=== PATIENT | female | born 1955 ===

== ENCOUNTER 2017-01-03 21:37 | Inpatient (IN) | payer OTHER ==
[2017-01-03 21:39] VITALS: BMI 22.6
--- NOTE | 2017-01-03 22:58 | ED PDOC ---
HPI: Chest Pain Time Seen by Provider: 01/03/17 22:33 Chief Complaint (Nursing): Chest Pain Chief Complaint (Provider): chest pain History Per: Patient History/Exam Limitations: no limitations Onset/Duration Of Symptoms: Hrs (12h), Sudden Onset Current Symptoms Are (Timing): Still Present Additional Complaint(s): midline chest pain radiating to LET chest arm and jaw since 12pm worsening since onset constant. No radiation to back. No shortness of breath. No cough. No swelling. Started at rest. No exacerbating or relieving actions. Past Medical History Reviewed: Historical Data, Nursing Documentation, Vital Signs Vital Signs: Last Vital Signs Temp 98.5 F 01/05/17 12:00 Pulse 60 01/05/17 12:00 Resp 18 01/05/17 12:00 BP 100/53 L 01/05/17 12:00 Pulse Ox 98 01/07/17 15:13 - Medical History PMH: Asthma, Gastritis, HTN, Hypercholesterolemia, Migraine, TIA Denies: HIV, Chronic Kidney Disease - Surgical History Surgical History: Cholecystectomy - Family History Family History: States: Unknown Family Hx - Living Arrangements Living Arrangements: With Family - Social History Current smoker - smoking cessation education provided: No Alcohol: None Drugs: Denies - Immunization History Hx Tetanus Toxoid Vaccination: Yes Hx Influenza Vaccination: Yes Hx Pneumococcal Vaccination: Yes - Home Medications Home Medications: Ambulatory Orders Medication Instructions Recorded Albuterol HFA [Ventolin HFA 90 2 puff IH Q4H PRN #0 inhaler 01/05/17 mcg/actuation (8 g)] Atorvastatin [Lipitor] 10 mg PO DAILY tab 01/05/17 Bisoprolol [Zebeta] 5 mg PO DAILY tab 01/05/17 Losartan [Cozaar] 100 mg PO DAILY tab 01/05/17 Montelukast [Singulair] 10 mg PO DAILY tab 01/05/17 amLODIPine [Norvasc] 5 mg PO DAILY tab 01/05/17 - Allergies Allergies/Adverse Reactions: Allergies Allergy/AdvReac Type Severity Reaction Status Date / Time No Known Allergies Allergy Verified 01/03/17 21:57 Review of Systems ROS Statement: Except As Marked, All Systems Reviewed And Found Negative (and as per HPI) Constitutional: Negative for: Fever, Chills Cardiovascular: Positive for: Chest Pain, Light Headedness. Negative for: Palpitations, Edema Respiratory: Negative for: Cough, Shortness of Breath, Pleuritic Pain Physical Exam - Reviewed Nursing Documentation Reviewed: Yes Vital Signs Reviewed: Yes - Physical Exam Appears: Positive for: Non-toxic, In Acute Distress Head Exam: Positive for: ATRAUMATIC, NORMOCEPHALIC Skin: Positive for: Warm, Dry Eye Exam: Positive for: EOMI, PERRL ENT: Negative for: Pharyngeal Erythema, Tonsillar Exudate Neck: Positive for: Painless ROM, Supple Cardiovascular/Chest: Positive for: Regular Rate, Rhythm, Chest Non Tender. Negative for: Murmur Respiratory: Positive for: Normal Breath Sounds. Negative for: Wheezing, Respiratory Distress Gastrointestinal/Abdominal: Positive for: Soft. Negative for: Tenderness, Mass , Distended, Guarding Back: Positive for: Normal Inspection. Negative for: L CVA Tenderness, R CVA Tenderness Extremity: Positive for: Normal ROM. Negative for: Pedal Edema Lymphatic: Negative for: Adenopathy Neurologic/Psych: Positive for: Alert, Mood/Affect (anxious affect). Negative for: Motor/Sensory Deficits - Laboratory Results Result Diagrams: 01/05/17 06:10 01/05/17 06:10 Interpretation Of Abn Labs: No clinically significant lab abnormalities - ECG ECG: Positive for: Interpreted By Me ECG Rhythm: Positive for: Normal ST Segment (poor baseline), Sinus Tachycardia, Nonspecific Changes (q waves inf leads similr to previous ekg 07/28) O2 Sat by Pulse Oximetry: 98 Pulse Ox Interpretation: Normal Medical Decision Making Medical Decision Making: Impression: Chest pain Chest pain w Cardiac risk factor: pt will need hospitalization for rule ACS, pending ER workup Ddx also include but no limited to chf, costochondritis, anxiety, ptx, pneumonia. DEVAN Sung Med Service for hospitalization. Disposition - Clinical Impression Clinical Impression: Chest pain - Disposition Disposition Time: 22:40 Condition: FAIR - Pt Status Changed To: Hospital Disposition Of: Observation - POA Present On Arrival: None
[2017-01-03 23:45] LABS: BASO # 0.1 K/uL (0.0-0.2); EOS # 0.7 K/uL (0.0-0.7); HEMATOCRIT 39.4 % (34.0-47.0); LYMPH # 3.3 K/uL (1.0-4.3); LYMPH % 38.8 % (20.0-40.0); MEAN CELL VOLUME 85.5 fl (81.0-99.0); MEAN CORPUSCULAR HEMOGLOBIN 28.2 pg (27.0-31.0); MEAN PLATELET VOLUME 8.5 fl (7.2-11.7); MONO # 0.7 K/uL (0.0-0.8); MONO % 7.6 % (0.0-10.0); NEUT # 3.8 K/uL (1.8-7.0); NEUT % 44.6 % (50.0-75.0); RED CELL DISTRIBUTION WIDTH 12.8 % (11.5-14.5); WHITE BLOOD COUNT 8.6 K/uL (4.8-10.8)
[2017-01-03 23:59] LABS: ALB/GLOB RATIO 1.3 (1.0-2.1); ALKALINE PHOSPHATASE 169 U/L (38-126); ALT/SGPT 37 U/L (9-52); AST/SGOT 33 U/L (14-36); BILIRUBIN,TOTAL 0.4 mg/dl (0.2-1.3); BLOOD UREA NITROGEN 17 mg/dl (7-17); CALCIUM 10.8 mg/dL (8.4-10.2); CARBON DIOXIDE 26 mmol/L (22-30); CHLORIDE 105 mmol/L (98-107); GFR AFRICAN-AMERICAN > 60; GLUCOSE,RANDOM 119 mg/dL (65-105); MAGNESIUM 2.4 MG/DL (1.6-2.3); PHOSPHOROUS 3.2 mg/dl (2.5-4.5); POTASSIUM 4.4 MMOL/L (3.6-5.0); SODIUM 144 mmol/l (132-148); TOTAL PROTEIN 7.8 G/DL (6.3-8.2)
[2017-01-04 00:28] LABS: THYROID STIMULATING HORMONE 3.67 mIU/ML (0.46-4.68)
[2017-01-04 00:34] LABS: PARTIAL THROMBOPLASTIN TIME 26.2 SECONDS (23.3-32.5)
[2017-01-04] MEDS ORDERED: Nitroglycerin 2% 1GM UD TOP STA (00:45)
[2017-01-04] MEDS ORDERED: Nitroglycerin 2% 1GM UD ONE (01:21)
--- NOTE | 2017-01-04 02:27 | ED PDOC ---
- Laboratory Results Result Diagrams: 01/03/17 23:40 01/03/17 23:40 - ECG O2 Sat by Pulse Oximetry: 98 Medical Decision Making Medical Decision Making: Patient s/o to providetr by Dr Barnes pending D Dimer D dimer WNL As per previous telecon by Dr Barnes with Dr Sung, patient will be placed on Obs status for further workup Disposition - Clinical Impression Clinical Impression: Chest pain - POA Present On Arrival: None - Disposition Disposition: Hospitalized as Observation Patient Disposition Time: 00:30 Condition: FAIR
[2017-01-04] MEDS ORDERED: Albuterol HFA 90 mcg/actuation (8 g) IH PRN (06:25)
--- NOTE | 2017-01-04 08:51 | RAD ---
HISTORY: chest pain COMPARISON: No prior. TECHNIQUE: Chest PA and lateral FINDINGS: LUNGS: No active pulmonary disease. PLEURA: No significant pleural effusion identified. No pneumothorax apparent. CARDIOVASCULAR: Normal. OSSEOUS STRUCTURES: No significant abnormalities. VISUALIZED UPPER ABDOMEN: Normal. OTHER FINDINGS: None. IMPRESSION: No active disease.
[2017-01-04] MEDS: Enoxaparin 40 mg Syringe SC SCH (09:04)
--- NOTE | 2017-01-04 10:48 | CARD ---
APPROVED REPORT EKG Measurement Heart [id number] <Conclusion> Sinus tachycardia with premature supraventricular complexes ST & T wave abnormality, consider lateral ischemia Abnormal ECG
[2017-01-04 12:28] LABS: THYROID STIMULATING HORMONE 2.56 mIU/ML (0.46-4.68)
--- NOTE | 2017-01-04 12:40 | HP ---
CHIEF COMPLAINT: Chest pain. HISTORY OF PRESENT ILLNESS: This is a 61-year-old female, known case of hypertension, elevated sourav sterol, asthma, dyspepsia, migraine, who was having chest pain radiating to left arm and chills which got worse yesterday, so the patient was brought to Emergency Room and was admitted for further manag ement. REVIEW OF SYSTEMS: Positive for chest pain. Review of system otherwise is negative for headache, di zziness, syncope, loss of consciousness, shortness of breath, nausea, vomiting, diarrhea, constipatio n, any new joint or extremity pain. Review of systems of all other organ systems is unremarkable. PAST MEDICAL HISTORY: Significant for hypertension, elevated cholesterol, ____, dyspepsia, asthma, T IA. PAST SURGICAL HISTORY: Remarkable for gallbladder surgery. PERSONAL HISTORY: The patient is currently a nonsmoker, nondrinker, no substance abuse. MEDICATIONS: The patient is on multiple medications including Fioricet, amlodipine, losartan, Advair , Ventolin, aspirin, Zebeta, Motrin, lovastatin, meloxicam and Singulair. ALLERGIES: The patient is not allergic to any medication. FAMILY HISTORY: Noncontributory. PHYSICAL EXAMINATION: GENERAL: Well-built, well-nourished overweight female in no acute distress. VITAL SIGNS: Temperature afebrile, pulse 77, respirations 16, blood pressure 140/80. HEENT: Pupils reacting to light. No JVD, no thyromegaly, no lymphadenopathy, no nystagmus. Normoce phalic, atraumatic skull. HEART: S1, S2 normal, regular. No significant murmur, gallop or rub is heard. LUNGS: Show good bilateral air exchange. No rales or rhonchi. ABDOMEN: Soft, nontender, no organomegaly, no fluid. Bowel sounds are plus. EXTREMITIES: No edema, no calf swelling, no tenderness, no acute ischemia. CENTRAL NERVOUS SYSTEM: Essentially unchanged and there is no sign of any acute gross focal motor or sensory neurological deficit. DIAGNOSTIC DATA: Available diagnostic data reviewed. WBC 8.6, hemoglobin 13, hematocrit 39.4, plate lets 290. PT 10.3, PTT 26. Sodium 144, potassium 4.4, chloride 105, bicarb 26, BUN 17, creatinine 0 .7. SMA-12 is unremarkable. Chest x-ray is clear. EKG does not reveal any acute ST-T changes, but the patient does show anterolateral ischemia changes on EKG. ADMITTING IMPRESSION: Chest pain, rule out acute coronary syndrome, coronary artery disease, hyperte nsion, elevated cholesterol, asthma, gastritis, dyspepsia. PLAN: As ordered. Telemetry monitoring does not reveal significant arrhythmias. Xander Sung MD cc: [id number] TT: 01/04/2017 12:39:14 tn
--- NOTE | 2017-01-04 12:59 | CP.PCM.CON ---
History of Present Illness - History of Present Illness History of Present Illness: patient seen examined. history of HTN presented with chest pain. Symptoms occurred at rest. The patient denied associated dyspnea. Previous echocardiogram July 2016 reveals normal left ventricular function, EF 60%. Cardiac enzymes negative x 2. Plan: will check third cardiac enzyme. If negative can d/c home, will schedule outpatient stress test. Past Patient History - Infectious Disease Hx of Infectious Diseases: None - Tetanus Immunizations Tetanus Immunization: Unknown - Past Medical History & Family History Past Medical History?: Yes - Past Social History Smoking Status: Former Smoker - CARDIAC Hx Hypercholesterolemia: Yes Hx Hypertension: Yes - PULMONARY Hx Asthma: Yes - NEUROLOGICAL Hx Migraine: Yes Hx Transient Ischemic Attacks (TIA): Yes - HEENT Hx HEENT Problems: Yes Hx Cataracts: Yes - RENAL Hx Chronic Kidney Disease: No - ENDOCRINE/METABOLIC Hx Endocrine Disorders: No - HEMATOLOGICAL/ONCOLOGICAL Hx Human Immunodeficiency Virus (HIV): No - INTEGUMENTARY Hx Dermatological Problems: No - MUSCULOSKELETAL/RHEUMATOLOGICAL Hx Musculoskeletal Disorders: No Hx Falls: No - GASTROINTESTINAL Hx Gastritis: Yes - GENITOURINARY/GYNECOLOGICAL Hx Genitourinary Disorders: No - PSYCHIATRIC Hx Psychophysiologic Disorder: No Hx Substance Use: No - SURGICAL HISTORY Hx Cholecystectomy: Yes - ANESTHESIA Hx Anesthesia: Yes Hx Anesthesia Reactions: No Meds Allergies/Adverse Reactions: Allergies Allergy/AdvReac Type Severity Reaction Status Date / Time No Known Allergies Allergy Verified 01/03/17 21:57 - Medications Medications: Current Medications Albuterol (Ventolin Hfa 90 Mcg/Actuation (8 G)) 2 puff IH Q4H PRN PRN Reason: Shortness of Breath Amlodipine Besylate (Norvasc) 5 mg PO DAILY [facility] Last Admin: 01/04/17 09:05 Dose: 5 mg Atorvastatin Calcium (Lipitor) 10 mg PO DAILY [facility] Last Admin: 01/04/17 09:05 Dose: 10 mg Bisoprolol Fumarate (Zebeta) 5 mg PO DAILY [facility] Last Admin: 01/04/17 09:05 Dose: 5 mg Enoxaparin Sodium (Lovenox) 40 mg SC DAILY [facility] PRN Reason: Protocol Last Admin: 01/04/17 09:04 Dose: 40 mg Losartan Potassium (Cozaar) 100 mg PO DAILY [facility] Last Admin: 01/04/17 09:05 Dose: 100 mg Montelukast Sodium (Singulair) 10 mg PO DAILY [facility] Last Admin: 01/04/17 09:05 Dose: 10 mg Results - Vital Signs Recent Vital Signs: Last Vital Signs Temp 97.9 F 01/04/17 12:31 Pulse 64 01/04/17 12:31 Resp 18 01/04/17 12:31 BP 115/70 01/04/17 12:31 Pulse Ox 97 01/04/17 12:31 - Labs Result Diagrams: 01/03/17 23:40 01/03/17 23:40 Labs: Laboratory Results - last 24 hr 01/04/17 11:30 Troponin I < 0.0120 Vitamin B12 306 TSH 3rd Generation 2.56
--- NOTE | 2017-01-04 12:59 | CP.PCM.CON ---
History of Present Illness - History of Present Illness History of Present Illness: I was asked to see patient by Dr. Sung. Patient is a 61 year old female with PMH HTN who presents with chest pain. The patient was at home when she felt chest pressure and assocaited dyspnea. The patient describes central chest discomfort without radiation. The patient states symptoms were progressive, and therefore she presented to [facility]. The patient has been chest pain free and without arrhythmia. Troponin x 2 has been negative thus far. Review of Systems - Constitutional Constitutional: absent: As Per HPI, Anorexia, Chills, Daytime Sleepiness, Excessive Sweating, Fatigue, Fever, Frequent Falls, Headache, Increased Appetite , Lethargy, Malaise, Night Sweats, Snoring, Sleep Apnea, Weight Gain, Weight Loss, Weakness, Other - EENT Eyes: absent: As Per HPI, Blind Spots, Blurred Vision, Change in Vision, Decreased Night Vision, Diplopia, Discharge, Dry Eye, Exophthalmos, Floaters, Irritation, Itchy Eyes, Loss of Peripheral Vision, Pain, Photophobia, Requires Corrective Lenses, Sees Flashes, Spots in Vision, Tunnel Vision, Other Visual Disturbances, Loss of Vision, Other Ears: absent: As Per HPI, Decreased Hearing, Ear Discharge, Ear Pain, Tinnitus, Abnormal Hearing, Disequilibrium, Dizziness, Other Nose/Mouth/Throat: absent: As Per HPI, Epistaxis, Nasal Congestion, Nasal Discharge, Nasal Obstruction, Nasal Trauma, Nose Pain, Post Nasal Drip, Sinus Pain, Sinus Pressure, Bleeding Gums, Change in Voice, Dental Pain, Dry Mouth, Dysphagia, Halitosis, Hoarsness, Lip Swelling, Mouth Lesions, Mouth Pain, Odynophagia, Sore Throat, Throat Swelling, Tongue Swelling, Facial Pain, Neck Pain, Neck Mass, Other - Breasts Breasts: absent: As Per HPI, Change in Shape, Mass, Pain, Nipple Discharge, Nipple Inversion, Skin Changes, Swelling, Other - Cardiovascular Cardiovascular: Chest Pain at Rest - Respiratory Respiratory: absent: As Per HPI, Cough, Dyspnea, Hemoptysis, Dyspnea on Exertion , Wheezing, Snoring, Stridor, Pain on Inspiration, Chest Congestion, Excessive Mucous Production, Change in Mucous Color, Pain with Coughing, Other - Gastrointestinal Gastrointestinal: absent: As Per HPI, Abdominal Pain, Belching, Bloating, Change in Bowel Habits, Change in Stool Character, Coffee Ground Emesis, Constipation, Cramping, Diarrhea, Dyspepsia, Dysphagia, Early Satiety, Excessive Flatus, Fecal Incontinence, Heartburn, Hematemesis, Hematochezia, Loose Stools, Melena, Nausea, Odynophagia, Temesmus, Vomiting, Other - Musculoskeletal Musculoskeletal: absent: As Per HPI, Abnormal Gait, Arthralgias, Atrophy, Back Pain, Deformity, Joint Swelling, Limited Range of Motion, Loss of Height, Muscle Cramps, Muscle Weakness, Myalgias, Neck Pain, Numbness, Radiating Pain into Limb, Stiffness, Tingling, Other - Integumentary Integumentary: absent: As Per HPI, Acne, Alopecia, Bleeding Lesions, Change in Hair, Change in Nails, Change in Pigmentation, Changing Lesions, Dry Skin, Erythema, Furuncle, Hirsutism, Lesions, New Lesions, Non-Healing Lesions, Photosensitivity, Pruritus, Rash, Skin Pain, Skin Ulcer, Sores, Striae, Swelling , Unusual Bruising, Wounds, Jaundice, Other - Neurological Neurological: absent: As Per HPI, Abnormal Gait, Abnormal Hearing, Abnormal Movements, Abnormal Speech, Behavioral Changes, Burning Sensations, Confusion, Convulsions, Disequilibrium, Dizziness, Numbness, Focal Weakness, Frequent Falls , Headaches, Lack of Coordination, Loss of Vision, Memory Loss, Paresthesias, Radicular Pain, Restless Legs, Sensory Deficit, Syncope, Tingling, Tremor, Vertigo, Weakness, Other Visual Disturbances, Other - Psychiatric Psychiatric: absent: As Per HPI, Abnormal Sleep Pattern, Anhedonia, Anxiety, Auditory Hallucinations, Behavioral Changes, Change in Appetite, Change in Libido, Confusion, Depression, Difficulty Concentrating, Hallucinations, Homicidal Ideation, Hopelessness, Irritability, Memory Loss, Mood Swings, Panic Attacks, Paranoia, Suicidal Ideation, Visual Hallucinations, Tactile Hallucinations, Other - Endocrine Endocrine: absent: As Per HPI, Change in Body Appearance, Change in Libido, Cold Intolorance, Deepening of Voice, Excessive Sweating, Fatigue, Flushing, Heat Intolorance, Increase in Ring/Shoe/Hat Size, Palpitations, Polydipsia, Polyphagia, Polyuria, Other - Hematologic/Lymphatic Hematologic: absent: As Per HPI, Easy Bleeding, Easy Bruising, Lymphadenopathy, Other Past Patient History - Infectious Disease Hx of Infectious Diseases: None - Tetanus Immunizations Tetanus Immunization: Unknown - Past Medical History & Family History Past Medical History?: Yes - Past Social History Smoking Status: Former Smoker - CARDIAC Hx Hypercholesterolemia: Yes Hx Hypertension: Yes - PULMONARY Hx Asthma: Yes - NEUROLOGICAL Hx Migraine: Yes Hx Transient Ischemic Attacks (TIA): Yes - HEENT Hx HEENT Problems: Yes Hx Cataracts: Yes - RENAL Hx Chronic Kidney Disease: No - ENDOCRINE/METABOLIC Hx Endocrine Disorders: No - HEMATOLOGICAL/ONCOLOGICAL Hx Human Immunodeficiency Virus (HIV): No - INTEGUMENTARY Hx Dermatological Problems: No - MUSCULOSKELETAL/RHEUMATOLOGICAL Hx Musculoskeletal Disorders: No Hx Falls: No - GASTROINTESTINAL Hx Gastritis: Yes - GENITOURINARY/GYNECOLOGICAL Hx Genitourinary Disorders: No - PSYCHIATRIC Hx Psychophysiologic Disorder: No Hx Substance Use: No - SURGICAL HISTORY Hx Cholecystectomy: Yes - ANESTHESIA Hx Anesthesia: Yes Hx Anesthesia Reactions: No Meds Home Medications: Home Medication List Medication Instructions Recorded Confirmed Type Albuterol HFA [Ventolin HFA 90 2 puff IH Q4H PRN #0 inhaler 01/05/17 Rx mcg/actuation (8 g)] Atorvastatin [Lipitor] 10 mg PO DAILY tab 01/05/17 Rx Bisoprolol [Zebeta] 5 mg PO DAILY tab 01/05/17 Rx Losartan [Cozaar] 100 mg PO DAILY tab 01/05/17 Rx Montelukast [Singulair] 10 mg PO DAILY tab 01/05/17 Rx amLODIPine [Norvasc] 5 mg PO DAILY tab 01/05/17 Rx Allergies/Adverse Reactions: Allergies Allergy/AdvReac Type Severity Reaction Status Date / Time No Known Allergies Allergy Verified 01/03/17 21:57 - Medications Medications: Current Medications Albuterol (Ventolin Hfa 90 Mcg/Actuation (8 G)) 2 puff IH Q4H PRN PRN Reason: Shortness of Breath Amlodipine Besylate (Norvasc) 5 mg PO DAILY [facility] Last Admin: 01/04/17 09:05 Dose: 5 mg Atorvastatin Calcium (Lipitor) 10 mg PO DAILY [facility] Last Admin: 01/04/17 09:05 Dose: 10 mg Bisoprolol Fumarate (Zebeta) 5 mg PO DAILY [facility] Last Admin: 01/04/17 09:05 Dose: 5 mg Enoxaparin Sodium (Lovenox) 40 mg SC DAILY [facility] PRN Reason: Protocol Last Admin: 01/04/17 09:04 Dose: 40 mg Losartan Potassium (Cozaar) 100 mg PO DAILY [facility] Last Admin: 01/04/17 09:05 Dose: 100 mg Montelukast Sodium (Singulair) 10 mg PO DAILY [facility] Last Admin: 01/04/17 09:05 Dose: 10 mg Physical Exam - Constitutional Appears: Non-toxic - Head Exam Head Exam: NORMAL INSPECTION - Eye Exam Eye Exam: Normal appearance - ENT Exam ENT Exam: Mucous Membranes Moist - Neck Exam Neck exam: Positive for: Full Rom - Respiratory Exam Respiratory Exam: NORMAL BREATHING PATTERN - Cardiovascular Exam Cardiovascular Exam: REGULAR RHYTHM - GI/Abdominal Exam GI & Abdominal Exam: Normal Bowel Sounds - Rectal Exam Rectal Exam: Deferred - Extremities Exam Extremities exam: Negative for: pedal edema - Back Exam Back exam: NORMAL INSPECTION - Neurological Exam Neurological exam: Alert, Oriented x3 - Psychiatric Exam Psychiatric exam: Normal Affect - Skin Skin Exam: Normal Color Results - Vital Signs Recent Vital Signs: Last Vital Signs Temp 97.9 F 01/04/17 12:31 Pulse 64 01/04/17 12:31 Resp 18 01/04/17 12:31 BP 115/70 01/04/17 12:31 Pulse Ox 97 01/04/17 12:31 - Labs Result Diagrams: 01/05/17 06:10 01/05/17 06:10 Labs: Laboratory Results - last 24 hr 01/04/17 11:30 Troponin I < 0.0120 Vitamin B12 306 TSH 3rd Generation 2.56 - EKG Data EKG Interpreted by: Myself EKG shows normal: Sinus rhythm Assessment & Plan (1) Chest pain Assessment and Plan: negative troponin x 2. currently chest pain free. If third troponin negative patient can be discharged home with outpatient stress test. Status: Acute (2) Hypertension Assessment and Plan: blood pressure control Status: Chronic Priority: Medium (3) Hypercholesteremia Assessment and Plan: risk factor for cad Status: Acute
--- NOTE | 2017-01-05 07:52 | PN ---
DATE: 01/05/2017 The patient seen and examined. Interim events noted. Consults noted, appreciated. Cardiology follo wup and intervention noted and appreciated. The patient remains in progressive care unit on telemetr y monitoring. The patient feels okay. Denies any chest pain or shortness of breath. PHYSICAL EXAMINATION: GENERAL: The patient is in no acute distress. VITAL SIGNS: Stable. HEART: S1, S2 normal, regular. LUNGS: Good bilateral air entry. ABDOMEN: Soft, nontender. EXTREMITIES: No edema, no calf swelling, no tenderness, no acute ischemia. CENTRAL NERVOUS SYSTEM: Essentially unchanged. DIAGNOSTIC DATA: Available reviewed. Telemetry monitoring does not reveal significant arrhythmias. Cardiac profile, 3 sets are negative. Overall, patient is medically stable. The patient will require stress test as outpatient. We will d ischarge patient home today. Case and plan discussed with patient. Need for a stress test and follo wup with primary care physician, . and systems development consultant, Dr. Jaimes, explained to patient in [facility], which she understood. PLAN: As ordered. Xander Sung MD cc: [id number] TT: 01/05/2017 07:51:28 Confirmation # [id number] Dictation # [id number]
[2017-01-05] MEDS: Enoxaparin 40 mg Syringe SC SCH (08:16)
[2017-01-05 08:52] LABS: HEMATOCRIT 39.3 % (34.0-47.0); MEAN CELL VOLUME 85.8 fl (81.0-99.0); MEAN CORPUSCULAR HEMOGLOBIN 28.5 pg (27.0-31.0); MEAN CORPUSCULAR HGB CONC 33.3 g/dL (33.0-37.0); RED CELL DISTRIBUTION WIDTH 12.8 % (11.5-14.5); WHITE BLOOD COUNT 10.2 K/uL (4.8-10.8)
[2017-01-05 09:03] LABS: ALB/GLOB RATIO 1.3 (1.0-2.1); ALKALINE PHOSPHATASE 144 U/L (38-126); ALT/SGPT 38 U/L (9-52); AST/SGOT 31 U/L (14-36); BILIRUBIN,TOTAL 0.8 mg/dl (0.2-1.3); BLOOD UREA NITROGEN 23 mg/dl (7-17); CALCIUM 10.2 mg/dL (8.4-10.2); CARBON DIOXIDE 23 mmol/L (22-30); CHLORIDE 105 mmol/L (98-107); CHOLESTEROL 161 mg/dL (0-199); GFR AFRICAN-AMERICAN > 60; GLUCOSE,RANDOM 98 mg/dL (65-105); POTASSIUM 4.4 MMOL/L (3.6-5.0); SODIUM 144 mmol/l (132-148); TOTAL PROTEIN 7.3 G/DL (6.3-8.2)
[2017-01-05 12:24] VITALS: BP 100/53; PULSE 60; RESP 18; TEMP 98.5
[2017-01-07 15:14] VITALS: O2SAT 98
== END 2017-01-05 14:00 | disposition home or self-care (01) | DRG 143 ==
LOC: H.ER 21:37 → H.ERHOLD 01-04 00:27 → UNDOADMOB 01-04 00:27 → H.ERHOLD 01-04 03:13 → H.TEL 01-04 03:13 → INTOOBSV 01-04 23:23 → OBSVTOIN 01-04 23:23
PROVIDERS: ADMIT Internal Medicine; ATTEND Internal Medicine
DX: R07.89 Other chest pain (principal); I10 Essential (primary) hypertension; G43.909 Migraine, unspecified, not intractable, without status migrainosus; J45.909 Unspecified asthma, uncomplicated; E78.00 Pure hypercholesterolemia, unspecified; Z87.891 Personal history of nicotine dependence; Z86.73 Personal history of transient ischemic attack (TIA), and cerebral infarction without residual deficits

== ENCOUNTER 2017-11-22 21:39 | Inpatient (IN) | payer MEDICAID, OTHER ==
[2017-11-22 21:39] VITALS: BMI 22.6
[2017-11-22] MEDS ORDERED: Iodixanol 320 MG/ML 100 ML BOTTLE IV ONE (22:27)
[2017-11-22] MEDS ORDERED: Sodium Chloride 0.9% 50 ML IV ONE (22:32)
[2017-11-22 22:41] LABS: BASO # 0.1 K/uL (0.0-0.2); BASO % 0.9 % (0.0-2.0); EOS # 0.5 K/uL (0.0-0.7); EOS % 3.4 % (0.0-4.0); HEMOGLOBIN 12.6 g/dL (12.0-16.0); LYMPH # 4.4 K/uL (1.0-4.3); LYMPH % 32.1 % (20.0-40.0); MEAN CELL VOLUME 84.4 fl (81.0-99.0); MEAN CORPUSCULAR HEMOGLOBIN 27.7 pg (27.0-31.0); MEAN CORPUSCULAR HGB CONC 32.8 g/dL (33.0-37.0); MEAN PLATELET VOLUME 8.7 fl (7.2-11.7); MONO # 1.2 K/uL (0.0-0.8); MONO % 8.7 % (0.0-10.0); NEUT # 7.5 K/uL (1.8-7.0); NEUT % 54.9 % (50.0-75.0); NRBC % 0.1 % (0.0-0.0); RBC 4.56 Mil/uL (3.80-5.20); RED CELL DISTRIBUTION WIDTH 12.7 % (11.5-14.5); WHITE BLOOD COUNT 13.7 K/uL (4.8-10.8)
[2017-11-22 22:51] LABS: ALB/GLOB RATIO 1.3 (1.0-2.1); ALBUMIN 4.6 g/dL (3.5-5.0); ALT/SGPT 50 U/L (9-52); AST/SGOT 56 U/L (14-36); BLOOD UREA NITROGEN 21 mg/dl (7-17); CALCIUM 10.2 mg/dL (8.4-10.2); GFR AFRICAN-AMERICAN 34; GFR NON-AFRICAN AMERICAN 28; HDL CHOLESTEROL 45 MG/DL (30-70)
--- NOTE | 2017-11-22 22:54 | CT ---
EXAM: CT Head Without Intravenous Contrast CLINICAL HISTORY: 62 years old, female; Signs and symptoms; Weakness, extremity; Right; Additional info: R sided weakness TECHNIQUE: Axial computed tomography images of the head/brain without intravenous contrast. All CT scans at this facility use one or more dose reduction techniques, viz.: automated exposure control; ma/kV adjustment per patient size (including targeted exams where dose is matched to indication; i.e. head); or iterative reconstruction technique. Coronal and sagittal reformatted images were created and reviewed. COMPARISON: CT - HEAD W/O CONTRAST 2015-11-06 13:48 FINDINGS: Brain: No intracranial hemorrhage. Probable 0.9 x 0.9 x 1.0 cm calcified meningioma along left frontal convexity, stable. Small parenchymal calcification. Dilated perivascular space vs chronic lacunar infarct about LEFT thalamus, stable. No definite edema. Ventricles: No hydrocephalus. Bones/joints: No acute fracture. Soft tissues: Unremarkable. Vasculature: Mild atherosclerotic disease of intracranial arteries. Sinuses: Scattered moderate mucosal thickening of ethmoid sinuses. Small fluid within maxillary, left sphenoid sinuses. Mastoid air cells: No mastoid effusion. Orbits: Unremarkable as visualized. IMPRESSION: 1. No definite territorial infarction. Acute infarction may be CT occult within first 24 hours. If focal deficit persists, consider followup CT or MRI for further evaluation. 2. Sinus disease. 3. Incidental/non-acute findings are described above.
[2017-11-22 23:03] LABS: LDL CHOLESTEROL 83 mg/dL (0-129)
--- NOTE | 2017-11-22 23:38 | ED PDOC ---
HPI: General Adult Time Seen by Provider: 11/22/17 22:14 Chief Complaint (Nursing): High Blood Pressure Chief Complaint (Provider): Weakness History Per: Patient History/Exam Limitations: no limitations Onset/Duration Of Symptoms: Days (x 1) Current Symptoms Are (Timing): Still Present Additional Complaint(s): 62 year old female with a history of CVA presents to the ED complaining of weakness in her upper and lower extremities associated with headache and dizziness, onset this morning. Daughter reports patient said she was going to pass out a few times earlier today. States she feels weak. Denies shortness of breath, chest pain, and fever. PMD: Horacio Martinez NIHSS Stroke Scale - Date/Time Evaluation Performed Date Performed: 11/22/17 Time Performed: 22:14 - How Severe is the Stroke Level of Consciousness: 0=Alert LOC to Questions: 0=Both comments correct LOC to commands: 0=Obeys both correctly Best Gaze: 0=Normal Visual: 0=No visual loss Facial: 0=Normal Motor Arm - Left: 0=No drift Motor Arm - Right: 0=No drift Motor Leg - Left: 0=No drift Motor Leg - Right: 0=No drift Limb Ataxia: 0=Absent Sensory: 0=Normal Best Language: 0=No aphasia Dysarthia: 0=Normal articulation Extinction & Inattention (Neglect): 0=Normal, no object Score: 0 Past Medical History Reviewed: Historical Data, Nursing Documentation, Vital Signs Vital Signs: Last Vital Signs Temp 97.9 F 11/23/17 04:15 Pulse 57 L 11/23/17 06:36 Resp 14 11/23/17 06:36 BP 107/44 L 11/23/17 06:36 Pulse Ox 97 11/23/17 06:36 - Medical History PMH: Asthma, Gastritis, HTN, Hypercholesterolemia, Migraine, TIA Denies: HIV, Chronic Kidney Disease Other PMH: CVA - Surgical History Surgical History: Cholecystectomy - Family History Family History: States: Unknown Family Hx - Immunization History Hx Tetanus Toxoid Vaccination: Yes Hx Influenza Vaccination: Yes Hx Pneumococcal Vaccination: Yes - Home Medications Home Medications: Ambulatory Orders Medication Instructions Recorded Albuterol HFA [Ventolin HFA 90 2 puff IH Q4H PRN #0 inhaler 01/05/17 mcg/actuation (8 g)] Atorvastatin [Lipitor] 10 mg PO DAILY tab 01/05/17 Bisoprolol [Zebeta] 5 mg PO DAILY tab 01/05/17 Losartan [Cozaar] 100 mg PO DAILY tab 01/05/17 Montelukast [Singulair] 10 mg PO DAILY tab 01/05/17 amLODIPine [Norvasc] 5 mg PO DAILY tab 01/05/17 metFORMIN [glucOPHAGE] 500 mg PO BID 11/23/17 - Allergies Allergies/Adverse Reactions: Allergies Allergy/AdvReac Type Severity Reaction Status Date / Time No Known Allergies Allergy Verified 11/22/17 22:05 Review of Systems ROS Statement: Except As Marked, All Systems Reviewed And Found Negative Constitutional: Positive for: Weakness (upper and lower extremities). Negative for: Fever Cardiovascular: Negative for: Chest Pain Respiratory: Negative for: Shortness of Breath Neurological: Positive for: Headache, Dizziness Physical Exam - Reviewed Nursing Documentation Reviewed: Yes Vital Signs Reviewed: Yes - Physical Exam Appears: Positive for: Non-toxic, No Acute Distress Head Exam: Positive for: ATRAUMATIC, NORMOCEPHALIC Skin: Positive for: Normal Color, Warm, Dry Eye Exam: Positive for: EOMI, Normal appearance, PERRL Neck: Positive for: Normal, Painless ROM, Supple Cardiovascular/Chest: Positive for: Regular Rate, Rhythm. Negative for: Murmur Respiratory: Positive for: Normal Breath Sounds. Negative for: Respiratory Distress Gastrointestinal/Abdominal: Positive for: Normal Exam, Soft. Negative for: Tenderness Back: Positive for: Normal Inspection. Negative for: L CVA Tenderness, R CVA Tenderness Extremity: Positive for: Normal ROM. Negative for: Deformity Neurologic/Psych: Positive for: Alert, Oriented. Negative for: Motor/Sensory Deficits, Cerebellar Tests, Aphasia - Laboratory Results Result Diagrams: 11/23/17 06:30 11/22/17 22:36 - ECG O2 Sat by Pulse Oximetry: 97 (RA) Pulse Ox Interpretation: Normal Medical Decision Making Medical Decision Making: Time: 22:14 Impression: CVA vs TIA Initial Plan: --Blood type and screen --Angiography head --Head Ct (Code Stroke) --EKG --CMP --Hemoglobin --Lipid panel --Troponin I --CBC --PTT --Prothrombin Time --Chest x-ray --Aspirin 362 mg PO Time: 22:[address] FINDINGS: Brain: No intracranial hemorrhage. Probable 0.9 x 0.9 x 1.0 cm calcified meningioma along left frontal convexity, stable. Small parenchymal calcification. Dilated perivascular space vs chronic lacunar infarct about LEFT thalamus, stable. No definite edema. Ventricles: No hydrocephalus. Bones/joints: No acute fracture. Soft tissues: Unremarkable. Vasculature: Mild atherosclerotic disease of intracranial arteries. Sinuses: Scattered moderate mucosal thickening of ethmoid sinuses. Small fluid within maxillary, left sphenoid sinuses. Mastoid air cells: No mastoid effusion. Orbits: Unremarkable as visualized. IMPRESSION: 1. No definite territorial infarction. Acute infarction may be CT occult within first 24 hours. If focal deficit persists, consider followup CT or MRI for further evaluation. 2. Sinus disease. 3. Incidental/non-acute findings are described above. Angiography FINDINGS: RIGHT INTERNAL CAROTID ARTERY: No evidence of occlusion. No aneurysm visualized. RIGHT ANTERIOR CEREBRAL ARTERY: No evidence of occlusion. No aneurysm visualized. RIGHT MIDDLE CEREBRAL ARTERY: No evidence of occlusion. No aneurysm visualized. RIGHT POSTERIOR CEREBRAL ARTERY: No evidence of occlusion. No aneurysm visualized. RIGHT VERTEBRAL ARTERY: Appears congenitally hypoplastic. No evidence of occlusion. LEFT INTERNAL CAROTID ARTERY: No evidence of occlusion. No aneurysm visualized. LEFT ANTERIOR CEREBRAL ARTERY: No evidence of occlusion. No aneurysm visualized. LEFT MIDDLE CEREBRAL ARTERY: No evidence of occlusion. No aneurysm visualized. LEFT POSTERIOR CEREBRAL ARTERY: No evidence of occlusion. No aneurysm visualized. LEFT VERTEBRAL ARTERY: Appears dominant. No evidence of occlusion. BASILAR ARTERY: No evidence of occlusion. No aneurysm visualized. IMPRESSION: - No evidence of occlusion or other acute abnormality of the major intracranial arteries. - See above for remaining findings Case was discussed with Dr. Baldwin as a neurology consult because of extremity weakness. Also discussed with Dr. Sung who agreed to accept the patient into his service. 0700 Dr. Sung reports that he spoke with Dr. Dia to hand over patient to hospitalist service. Scribe Attestation: Documented by Nicolle Bravo, acting as a scribe for Alfredo Ramirez MD. Provider Scribe Attestation: All medical record entries made by the Scribe were at my direction and personally dictated by me. I have reviewed the chart and agree that the record accurately reflects my personal performance of the history, physical exam, medical decision making, and the department course for this patient. I have also personally directed, reviewed, and agree with the Disposition - Clinical Impression Clinical Impression: CVA (cerebral vascular accident), Headache - Patient ED Disposition Is Patient to be Admitted: Yes - Disposition Disposition Time: 23:00 Condition: GUARDED Patient Signed Over To: Xander Sung K - Pt Status Changed To: Hospital Disposition Of: Inpatient - Admit Certification Admit to Inpatient:: After my assessment, the patient will require hospitalization for at least two midnights. This is because of the severity of symptoms shown, intensity of services needed, and/or the medical risk in this patient being treated as an outpatient.
[2017-11-22 23:55] LABS: PROTHROMBIN TIME 11.4 Seconds (9.8-13.1)
[2017-11-22 23:56] LABS: PARTIAL THROMBOPLASTIN TIME 32.1 Seconds (25.6-37.1)
--- NOTE | 2017-11-23 00:23 | CT ---
EXAM: CT Angiography Head With Intravenous Contrast EXAM DATE/TIME: 11/22/2017 10:21 PM CLINICAL HISTORY: 62 years old, female; Signs and symptoms; Weakness; Additional info: R sided weakness TECHNIQUE: Axial computed tomographic angiography images of the head with intravenous contrast using CT angiography protocol. All CT scans at this facility use one or more dose reduction techniques, viz.: automated exposure control; ma/kV adjustment per patient size (including targeted exams where dose is matched to indication; i.e. head); or iterative reconstruction technique. MIP reconstructed images were created and reviewed. Coronal and sagittal reformatted images were created and reviewed. CONTRAST: 95 mL of VISIPAQUE-320 administered intravenously. COMPARISON: Recent noncontrast head CT. FINDINGS: RIGHT INTERNAL CAROTID ARTERY: No evidence of occlusion. No aneurysm visualized. RIGHT ANTERIOR CEREBRAL ARTERY: No evidence of occlusion. No aneurysm visualized. RIGHT MIDDLE CEREBRAL ARTERY: No evidence of occlusion. No aneurysm visualized. RIGHT POSTERIOR CEREBRAL ARTERY: No evidence of occlusion. No aneurysm visualized. RIGHT VERTEBRAL ARTERY: Appears congenitally hypoplastic. No evidence of occlusion. LEFT INTERNAL CAROTID ARTERY: No evidence of occlusion. No aneurysm visualized. LEFT ANTERIOR CEREBRAL ARTERY: No evidence of occlusion. No aneurysm visualized. LEFT MIDDLE CEREBRAL ARTERY: No evidence of occlusion. No aneurysm visualized. LEFT POSTERIOR CEREBRAL ARTERY: No evidence of occlusion. No aneurysm visualized. LEFT VERTEBRAL ARTERY: Appears dominant. No evidence of occlusion. BASILAR ARTERY: No evidence of occlusion. No aneurysm visualized. IMPRESSION: - No evidence of occlusion or other acute abnormality of the major intracranial arteries. - See above for remaining findings.
[2017-11-23 06:55] LABS: HEMOGLOBIN 11.5 g/dL (12.0-16.0); MEAN CELL VOLUME 83.8 fl (81.0-99.0); MEAN CORPUSCULAR HEMOGLOBIN 27.4 pg (27.0-31.0); MEAN CORPUSCULAR HGB CONC 32.7 g/dL (33.0-37.0); RBC 4.21 Mil/uL (3.80-5.20); RED CELL DISTRIBUTION WIDTH 13.1 % (11.5-14.5); WHITE BLOOD COUNT 10.7 K/uL (4.8-10.8)
--- NOTE | 2017-11-23 08:35 | CP.PCM.HP ---
History of Present Illness - History of Present Illness History of Present Illness: Pt was initially admitted under Dr Sung and transferred to our service today. Chief Complaint : right sided weakness HPI: 62y/o lady with hx of HTN, Hyperlipidemia, previous TIA, Asthma, was brought in bec of right sided weakness. For the past 1 wk, the patint has been having a slight frontal headache , accompanied by slight dizziness. She took OTC analgesics with some relief. Yesterday morning, she woke up feeling lightheaded, her headache continued. This was followed by right arm and leg numbness then weakness later that day accompanied by slurring of speech. She was then brought in by family when she told them of her symptoms. 6 years ago , she had the same symptoms, however the weakness was on the left and this resolved immediately. She has been taking Aspirin 81mg and Lipitor since then . At present , her right sided weakness is better though not back to her baseline , slurring of speech resolved and she passed her bedside swallowing screen. PMD : Dr Martinez Present on Admission - Present on Admission Any Indicators Present on Admission: No Review of Systems - Review of Systems All systems: reviewed and no additional remarkable complaints except - Constitutional Constitutional: Headache, Weakness - EENT Eyes: absent: Blurred Vision, Change in Vision Ears: absent: Decreased Hearing Nose/Mouth/Throat: absent: Nasal Congestion - Cardiovascular Cardiovascular: absent: Chest Pain, Palpitations, Paroxysmal Nocturnal Dyspnea, Pedal Edema - Respiratory Respiratory: Cough. absent: Dyspnea, Hemoptysis, Dyspnea on Exertion - Gastrointestinal Gastrointestinal: absent: Abdominal Pain, Nausea, Vomiting - Genitourinary Genitourinary: absent: Difficulty Urinating, Dysuria - Musculoskeletal Musculoskeletal: Muscle Weakness, Numbness - Integumentary Integumentary: absent: Rash - Neurological Neurological: Dizziness, Numbness, Focal Weakness, Headaches - Psychiatric Psychiatric: absent: Anxiety, Depression, Suicidal Ideation - Endocrine Endocrine: absent: Polydipsia, Polyphagia, Polyuria - Hematologic/Lymphatic Hematologic: absent: Easy Bleeding, Easy Bruising Past Patient History - Infectious Disease Hx of Infectious Diseases: None - Tetanus Immunizations Tetanus Immunization: Unknown - Past Medical History & Family History Past Medical History?: Yes - Past Social History Smoking Status: Former Smoker Chewing Tobacco Use: No Cigar Use: No Occupation: nanny Alcohol: None Drugs: Denies Home Situation {Lives}: With Family Domestic Violence: Negative - CARDIAC Hx Hypercholesterolemia: Yes Hx Hypertension: Yes - PULMONARY Hx Asthma: Yes - NEUROLOGICAL Hx Migraine: Yes Hx Transient Ischemic Attacks (TIA): Yes - HEENT Hx HEENT Problems: Yes Hx Cataracts: Yes - RENAL Hx Chronic Kidney Disease: No - ENDOCRINE/METABOLIC Hx Endocrine Disorders: No - HEMATOLOGICAL/ONCOLOGICAL Hx Human Immunodeficiency Virus (HIV): No - INTEGUMENTARY Hx Dermatological Problems: No - MUSCULOSKELETAL/RHEUMATOLOGICAL Hx Musculoskeletal Disorders: No Hx Falls: No - GASTROINTESTINAL Hx Gastritis: Yes - GENITOURINARY/GYNECOLOGICAL Hx Genitourinary Disorders: No - PSYCHIATRIC Hx Psychophysiologic Disorder: No Hx Substance Use: No - SURGICAL HISTORY Hx Cholecystectomy: Yes - ANESTHESIA Hx Anesthesia: Yes Hx Anesthesia Reactions: No Hx Malignant Hyperthermia: No Meds Allergies/Adverse Reactions: Allergies Allergy/AdvReac Type Severity Reaction Status Date / Time No Known Allergies Allergy Verified 11/22/17 22:05 Physical Exam - Constitutional Appears: Non-toxic, No Acute Distress - Head Exam Head Exam: ATRAUMATIC, NORMAL INSPECTION, NORMOCEPHALIC - Eye Exam Eye Exam: EOMI, Normal appearance, PERRL Pupil Exam: NORMAL ACCOMODATION - ENT Exam ENT Exam: Mucous Membranes Dry, Normal External Ear Exam - Neck Exam Neck exam: Positive for: Full Rom. Negative for: Meningismus - Respiratory Exam Respiratory Exam: NORMAL BREATHING PATTERN. absent: Accessory Muscle Use, Rales , Rhonchi, Wheezes, Respiratory Distress - Cardiovascular Exam Cardiovascular Exam: REGULAR RHYTHM, +S1, +S2 - GI/Abdominal Exam GI & Abdominal Exam: Normal Bowel Sounds, Soft. absent: Tenderness - Extremities Exam Extremities exam: Positive for: normal capillary refill, pedal pulses present. Negative for: calf tenderness, pedal edema - Back Exam Back exam: FULL ROM. absent: CVA tenderness (L), CVA tenderness (R), vertebral tenderness - Neurological Exam Neurological exam: Alert, CN II-XII Intact, Oriented x3, Reflexes Normal Additional comments: MMT : 4/5 Right 5/5 Left - Psychiatric Exam Psychiatric exam: Normal Affect, Normal Mood - Skin Skin Exam: Dry, Normal Color, Warm Results - Vital Signs Recent Vital Signs: Last Vital Signs Temp 97.9 F 11/23/17 04:15 Pulse 57 L 11/23/17 06:36 Resp 14 11/23/17 06:36 BP 107/44 L 11/23/17 06:36 Pulse Ox 97 11/23/17 07:17 - Labs Result Diagrams: 11/23/17 06:30 11/22/17 22:36 Labs: Laboratory Results - last 24 hr 11/22/17 11/22/17 11/22/17 22:17 22:36 22:36 WBC 13.7 H RBC 4.56 Hgb 12.6 Hct 38.5 MCV 84.4 MCH 27.7 MCHC 32.8 L RDW 12.7 Plt Count 279 MPV 8.7 Neut % (Auto) 54.9 Lymph % (Auto) 32.1 [place] % (Auto) 8.7 Eos % (Auto) 3.4 Baso % (Auto) 0.9 Neut # (Auto) 7.5 H Lymph # (Auto) 4.4 H [place] # (Auto) 1.2 H Eos # (Auto) 0.5 Baso # (Auto) 0.1 PT INR APTT Sodium 143 Potassium 3.8 Chloride 104 Carbon Dioxide 25 Anion Gap 18 BUN 21 H Creatinine 1.8 H Est GFR ( Amer) 34 Est GFR (Non-Af Amer) 28 POC Glucose (mg/dL) 104 Random Glucose 112 H Calcium 10.2 Total Bilirubin 0.3 AST 56 H ALT 50 Alkaline Phosphatase 250 H Troponin I < 0.0120 Total Protein 8.1 Albumin 4.6 Globulin 3.5 Albumin/Globulin Ratio 1.3 Triglycerides 265 H D Cholesterol 172 LDL Cholesterol Direct 83 HDL Cholesterol 45 Vitamin B12 TSH 3rd Generation 11/22/17 11/23/17 11/23/17 22:36 06:30 06:30 WBC 10.7 RBC 4.21 Hgb 11.5 L Hct 35.3 MCV 83.8 MCH 27.4 MCHC 32.7 L RDW 13.1 Plt Count 259 MPV Neut % (Auto) Lymph % (Auto) [place] % (Auto) Eos % (Auto) Baso % (Auto) Neut # (Auto) Lymph # (Auto) [place] # (Auto) Eos # (Auto) Baso # (Auto) PT 11.4 INR 1.0 APTT 32.1 Sodium Potassium Chloride Carbon Dioxide Anion Gap BUN Creatinine Est GFR ( Amer) Est GFR (Non-Af Amer) POC Glucose (mg/dL) Random Glucose Calcium Total Bilirubin AST ALT Alkaline Phosphatase Troponin I Total Protein Albumin Globulin Albumin/Globulin Ratio Triglycerides Cholesterol LDL Cholesterol Direct HDL Cholesterol Vitamin B12 306 TSH 3rd Generation 3.45 - EKG Data EKG Interpreted by: Myself EKG shows normal: Sinus rhythm Rate: Bradycardia - EKG Data EKG comments: T wave inversion V2, V3 Assessment & Plan (1) CVA (cerebral vascular accident) Status: Acute (2) Headache Status: Acute (3) TAMARA (acute kidney injury) Status: Acute (4) Asthma Status: Chronic (5) Hypercholesteremia Status: Chronic (6) Hypertension Status: Chronic Priority: Medium (7) DVT prophylaxis Status: Acute Priority: High - Assessment and Plan (Free Text) Assessment: 62y/o lady with hx of HTN, Hyperlipidemia, previous TIA, Asthma, was brought in bec of right sided weakness. (1) CVA (cerebral vascular accident) Status: Acute admit to Tele start ASA 325 mg , add Plavix ( pt was on 81 mg ASA daily ) , start high dose Statin at 80mg daily CT of head : chronic infarct CTA of Brain : neg MRI of Brain Carotid Sono ECHO Neuro consult PT,OT, Speech consult (2) Headache Status: Acute Tylenol prn YOUSSEF better (3) TAMARA (acute kidney injury) Status: Acute rpt BMP if persistent will do renal sonogram and further work up may be just ATN/dehydration, however need to r/o HTN Nephropathy (4) Asthma, mild intermittent Status: Chronic Albuterol prn (5) Hypercholesteremia Status: Chronic start statin (6) Hypertension Status: Chronic Priority: Medium hold antihypertensives to allow permissive HTN (7) DVT prophylaxis Status: Acute Priority: High Lovenox Decision To Admit - Pt Status Changed To: Hospital Disposition Of: Inpatient - Admit Certification Admit to Inpatient:: After my assessment, the patient will require hospitalization for at least two midnights. This is because of the severity of symptoms shown, intensity of services needed, and/or the medical risk in this patient being treated as an outpatient. - . Bed Request Type: Telemetry Admitting Physician: Mahnaz Nunez
[2017-11-23] MEDS ORDERED: Enoxaparin 40 mg Syringe SC SCH (09:00)
[2017-11-23] MEDS: Enoxaparin 30 mg Syringe SC SCH (09:31)
[2017-11-23 11:40] LABS: CALCIUM 10.1 mg/dL (8.4-10.2)
--- NOTE | 2017-11-23 13:40 | RAD ---
HISTORY: code stk COMPARISON: 01/03/2017 FINDINGS: LUNGS: No active pulmonary disease. PLEURA: No significant pleural effusion identified, no pneumothorax apparent. CARDIOVASCULAR: Normal. OSSEOUS STRUCTURES: No significant abnormalities. VISUALIZED UPPER ABDOMEN: Normal. OTHER FINDINGS: None. IMPRESSION: No active disease.
--- NOTE | 2017-11-23 17:11 | US ---
PROCEDURE: Bilateral duplex Doppler carotid arterial ultrasound examination HISTORY: CVA COMPARISON: Not available Findings Right carotid artery: There is minimal intimal thickening noted in the distal common carotid artery. There is minimal scattered atheromatous plaque in the carotid bulb and distal CCA. . Peak systolic velocity measurements: CCA: 34333.2 cm/sec ICA: 106.4 cm/sec ICA/CCA peak systolic velocity ratio: 0.9 Antegrade flow demonstrated in the vertebral artery Left carotid artery: There is no significant atheromatous plaque. There is mild intimal thickening in the distal common carotid artery. Peak systolic velocity measurements: CCA: 89.6 cm/sec ICA: 73970.4 cm/sec ICA/CCA peak systolic velocity ratio: 1.3 Antegrade flow demonstrated in the vertebral artery IMPRESSION: Less than 50 percent ICA stenosis bilaterally as per SRU consensus criteria. Antegrade flow demonstrated in both vertebral arteries.
--- NOTE | 2017-11-23 20:27 | CARD ---
APPROVED REPORT EKG Measurement Heart [id number] <Conclusion> Sinus bradycardia ST & T wave abnormality, consider anterior ischemia Abnormal ECG
--- NOTE | 2017-11-23 22:03 | CP.PCM.CON ---
History of Present Illness - History of Present Illness History of Present Illness: Miss Reyes is a 62y/o lady with hx of HTN, Hyperlipidemia, previous TIA , Asthma, was brought in bec of right sided weakness, duration one week, with a frontal headache, and dizziness. Yesterday morning, she had right arm and leg numbness then weakness later that day accompanied by slurring of speech. Approximately 6 years ago, she had simiar symptoms that resolved quickly. On this visit, however, her right sided weakness persists and her dysarthria has improved. PMH/PSH: as above FH/SH: . no tobacco, no etoh All: nkda PMD : Dr Martinez on exam: significant for right sided drift. aaoz3 pupils 3mm-2mm with light .eomi. Cn 2-12 normal. Speech fluent. Can name and repeat. Right proximal strength is 4/5. all other muscle groups are 5/5 Sensory :intact ft, pin, position, sense. Gait: normal. Past Patient History - Infectious Disease Hx of Infectious Diseases: None - Tetanus Immunizations Tetanus Immunization: Unknown - Past Medical History & Family History Past Medical History?: Yes - Past Social History Smoking Status: Former Smoker Chewing Tobacco Use: No Cigar Use: No Occupation: nanny Alcohol: None Drugs: Denies Home Situation {Lives}: With Family Domestic Violence: Negative - CARDIAC Hx Hypercholesterolemia: Yes Hx Hypertension: Yes - PULMONARY Hx Asthma: Yes - NEUROLOGICAL Hx Migraine: Yes Hx Transient Ischemic Attacks (TIA): Yes - HEENT Hx HEENT Problems: Yes Hx Cataracts: Yes - RENAL Hx Chronic Kidney Disease: No - ENDOCRINE/METABOLIC Hx Endocrine Disorders: No - HEMATOLOGICAL/ONCOLOGICAL Hx Human Immunodeficiency Virus (HIV): No - INTEGUMENTARY Hx Dermatological Problems: No - MUSCULOSKELETAL/RHEUMATOLOGICAL Hx Musculoskeletal Disorders: No Hx Falls: No - GASTROINTESTINAL Hx Gastritis: Yes - GENITOURINARY/GYNECOLOGICAL Hx Genitourinary Disorders: No - PSYCHIATRIC Hx Psychophysiologic Disorder: No Hx Substance Use: No - SURGICAL HISTORY Hx Cholecystectomy: Yes - ANESTHESIA Hx Anesthesia: Yes Hx Anesthesia Reactions: No Hx Malignant Hyperthermia: No Meds Allergies/Adverse Reactions: Allergies Allergy/AdvReac Type Severity Reaction Status Date / Time No Known Allergies Allergy Verified 11/22/17 22:05 - Medications Medications: Current Medications Aspirin (Aspirin) 325 mg PO DAILY [facility] Last Admin: 11/23/17 09:31 Dose: 325 mg Atorvastatin Calcium (Lipitor) 80 mg PO DAILY [facility] Last Admin: 11/23/17 09:31 Dose: 80 mg Clopidogrel Bisulfate (Plavix) 75 mg PO DAILY [facility] Last Admin: 11/23/17 09:31 Dose: 75 mg Enoxaparin Sodium (Lovenox) 30 mg SC DAILY [facility] PRN Reason: Protocol Last Admin: 11/23/17 09:31 Dose: 30 mg Results - Vital Signs Recent Vital Signs: Last Vital Signs Temp 97.9 F 11/23/17 04:15 Pulse 57 L 11/23/17 06:36 Resp 14 11/23/17 06:36 BP 107/44 L 11/23/17 06:36 Pulse Ox 97 11/23/17 07:17 - Labs Result Diagrams: 11/23/17 06:30 11/23/17 11:10 Labs: Laboratory Results - last 24 hr 11/22/17 11/22/17 11/22/17 22:17 22:36 22:36 WBC 13.7 H RBC 4.56 Hgb 12.6 Hct 38.5 MCV 84.4 MCH 27.7 MCHC 32.8 L RDW 12.7 Plt Count 279 MPV 8.7 Neut % (Auto) 54.9 Lymph % (Auto) 32.1 [place] % (Auto) 8.7 Eos % (Auto) 3.4 Baso % (Auto) 0.9 Neut # (Auto) 7.5 H Lymph # (Auto) 4.4 H [place] # (Auto) 1.2 H Eos # (Auto) 0.5 Baso # (Auto) 0.1 PT INR APTT Sodium 143 Potassium 3.8 Chloride 104 Carbon Dioxide 25 Anion Gap 18 BUN 21 H Creatinine 1.8 H Est GFR ( Amer) 34 Est GFR (Non-Af Amer) 28 POC Glucose (mg/dL) 104 Random Glucose 112 H Calcium 10.2 Total Bilirubin 0.3 AST 56 H ALT 50 Alkaline Phosphatase 250 H Troponin I < 0.0120 Total Protein 8.1 Albumin 4.6 Globulin 3.5 Albumin/Globulin Ratio 1.3 Triglycerides 265 H D Cholesterol 172 LDL Cholesterol Direct 83 HDL Cholesterol 45 Vitamin B12 TSH 3rd Generation 11/22/17 11/23/17 11/23/17 22:36 06:30 06:30 WBC 10.7 RBC 4.21 Hgb 11.5 L Hct 35.3 MCV 83.8 MCH 27.4 MCHC 32.7 L RDW 13.1 Plt Count 259 MPV Neut % (Auto) Lymph % (Auto) [place] % (Auto) Eos % (Auto) Baso % (Auto) Neut # (Auto) Lymph # (Auto) [place] # (Auto) Eos # (Auto) Baso # (Auto) PT 11.4 INR 1.0 APTT 32.1 Sodium Potassium Chloride Carbon Dioxide Anion Gap BUN Creatinine Est GFR ( Amer) Est GFR (Non-Af Amer) POC Glucose (mg/dL) Random Glucose Calcium Total Bilirubin AST ALT Alkaline Phosphatase Troponin I Total Protein Albumin Globulin Albumin/Globulin Ratio Triglycerides Cholesterol LDL Cholesterol Direct HDL Cholesterol Vitamin B12 306 TSH 3rd Generation 3.45 Assessment & Plan - Assessment and Plan (Free Text) Assessment: 62 yr old woman with possible new left sided stroke, who will need stroke workup. Plan; 1. MRI Brain 2. CTA 3. lipid profile. 4. Aspirin. 5. please keep bp at 180-190/90 6. physical therapy. Plan: 62 yr old woman with what appears to be left sided ischemic stroke, location may be left internal capsule, improving. PLan: 1. Stroke workup. Echo Carotid dopplers lipid profile CTA, MRI Brain 2. pt, ot, 3. aspirin 325 mg po daily.
[2017-11-24] MEDS ORDERED: Valproate 500 MG in Sodium Chloride 0.9% 100 ML IVPB ONE (08:13)
[2017-11-24] MEDS ORDERED: Dexamethasone 10 MG in Dextrose 5% In Water 50 ML IV ONE (08:13)
[2017-11-24] MEDS ORDERED: Magnesium Sulfate 2 gm/50 ml 2 GM/50 ML BAG IV ONE (08:45)
--- NOTE | 2017-11-24 09:59 | CP.PCM.PN ---
Subjective - Date & Time of Evaluation Date of Evaluation: 11/24/17 Time of Evaluation: 09:56 - Subjective Subjective: Ms. Reyes was seen and examined at the bedside. She is alert, oriented , She claims of experiencing frontal hadache radiating to the parietal area with pain scale 7/10, with dizziness. She denies any blurred vision, nausea, or vomiting. She is able to follow simple commands. There was no untoward events overnight. Objective - Vital Signs/Intake and Output Vital Signs (last 24 hours): Temp Pulse Resp BP Pulse Ox 97.8 F 53 L 18 125/72 97 11/24/17 05:10 11/24/17 05:10 11/24/17 05:10 11/24/17 05:10 11/24/17 05:10 - Medications Medications: Current Medications Acetaminophen (Tylenol 325mg Tab) 650 mg PO Q6 PRN PRN Reason: Headache Last Admin: 11/24/17 09:44 Dose: 650 mg Aspirin (Aspirin) 325 mg PO DAILY [facility] Last Admin: 11/23/17 09:31 Dose: 325 mg Atorvastatin Calcium (Lipitor) 80 mg PO DAILY [facility] Last Admin: 11/24/17 09:24 Dose: 80 mg Clopidogrel Bisulfate (Plavix) 75 mg PO DAILY [facility] Last Admin: 11/24/17 09:25 Dose: 75 mg Enoxaparin Sodium (Lovenox) 30 mg SC DAILY [facility] PRN Reason: Protocol Last Admin: 11/23/17 09:31 Dose: 30 mg - Labs Labs: 11/23/17 06:30 11/23/17 11:10 PT 11.4 Seconds (9.8-13.1) 11/22/17 22:36 INR 1.0 (0.9-1.2) 11/22/17 22:36 APTT 32.1 Seconds (25.6-37.1) 11/22/17 22:36 - Constitutional Appears: No Acute Distress - Head Exam Head Exam: NORMAL INSPECTION - Neurological Exam Neurological Exam: Alert, Awake, Oriented x3 Neuro motor strength exam: Left Upper Extremity: 5, Right Upper Extremity: 4, Left Lower Extremity: 5, Right Lower Extremity: 5 Additional comments: She is alert, oriented able to follow simple commands sensation remains intact. Assessment and Plan (1) CVA (cerebral vascular accident) Assessment & Plan: Case discussed with Dr. Fernandez, continue all current medical, physical, occupational, and speech therapies. Rending MRI of the brain including MRA of head and neck. Status: Acute (2) Headache Assessment & Plan: Case discussed with Dr. Mccain recommend magnesium 2 gms IVPB for one dose, decadron 10 mg IV for one dose, and depakote 500 mg IVPB for one dose. Status: Acute
[2017-11-24] MEDS: Albuterol 0.083% Inhal Sol (2.5 mg/3 mL) UD INH SCH ×2 (12:18→13:06)
[2017-11-24] MEDS: Fluticasone-Salmeterol 250-50mcg Diskus IH SCH ×2 (12:24→21:20)
[2017-11-24] MEDS: Enoxaparin 40 mg Syringe SC SCH (12:25)
[2017-11-24] MEDS: Enoxaparin 30 mg Syringe SC SCH (12:26)
--- NOTE | 2017-11-24 12:43 | MRI ---
PROCEDURE: MRI BRAIN WITHOUT CONTRAST HISTORY: Rule out CVA COMPARISON: Comparison made with prior CT scan of the brain dated 11/22/2017. Correlation also made with concurrent MRA of the brain. TECHNIQUE: Multiplanar, multisequence MR images of the brain were obtained without intravenous contrast enhancement. FINDINGS: HEMORRHAGE: No acute parenchymal, subarachnoid or extra-axial hemorrhage. No evidence hemosiderin deposition is identified on gradient echo weighted sequence. DWI: No evidence of an acute or early subacute infarction seen on diffusion imaging. BRAIN PARENCHYMA: There are multiple tiny nonspecific focal areas of increased T2 signal seen scattered about the deep and subcortical white matter as well as both basal nuclei consistent with tiny chronic lacunar type infarcts. . In addition, there are slight prolonged T2 signal changes seen within the periventricular white matter that most likely represents some combination of minor FLAIR related CSF interface artifact an concomitant minimal chronic periventricular white matter ischemic changes. No obvious parenchymal nor extra-axial masses. Prominent appearing subarachnoid in the pre medullary region the slightly larger on the left than right ; the possibility of an incidental small arachnoid cyst not completely excluded. Mild generalized volume loss. VENTRICLES: No obstructive hydrocephalus. CRANIUM: Calvarium is unremarkable. ORBITS: Kwaku orbits and contents grossly unremarkable. PARANASAL SINUSES/MASTOIDS: Re- demonstrated are tiny fluid levels both maxillary antra. Mild mucosal thickening again seen in the ethmoid air complex also again noted. VASCULAR SYSTEM: Visualized major vascular flow voids at skull base patent. OTHER FINDINGS: None. IMPRESSION: No evidence of acute intracranial hemorrhage or infarct. Minor chronic white matter and basal nuclei ischemic changes. . Mild generalized volume loss. Tiny fluid levels both maxillary antra with mild mucosal thickening ethmoid air complex.
--- NOTE | 2017-11-24 12:50 | MRI ---
PROCEDURE: Magnetic Resonance Angiography Brain HISTORY: CVA. COMPARISON: Correlation made with concurrent MRI of the brain and MRA neck. TECHNIQUE: 3D time of flight MR angiography of the intracranial arteries was performed. Rotating maximum intensity projection images were generated. FINDINGS: INTERNAL CAROTID ARTERIES: Unremarkable. The skull base, petrous, cavernous and supraclinoid segments are bilaterally widely patient. ANTERIOR CEREBRAL ARTERIES: Unremarkable. A1 and A2 segments are widely patent. Smaller distal branches unremarkable, as visualized. MIDDLE CEREBRAL ARTERIES: Unremarkable. M1 and M2 segments are widely patent. Perisylvian branches grossly symmetric. POSTERIOR CIRCULATION: The left vertebral artery is larger in caliber/ more dominant than the right. The intradural segment of the distal right vertebral artery and becomes smaller in caliber, felt to that an normal anatomic variation. Basilar artery is patent. Both posterior cerebral arteries are patent and relatively symmetric so far as can be determined however note that due to small size the distal posterior cerebral arteries are not well delineated. . ANEURYSM/ VASCULAR MALFORMATIONS: No evidence of large aneurysm nor vascular malformation. OTHER FINDINGS: None. IMPRESSION: No evidence of occlusion or significant stenosis. No evidence of large aneurysm nor vascular malformation.
--- NOTE | 2017-11-24 13:27 | MRI ---
PROCEDURE: MRA of the neck without contrast HISTORY: CVA COMPARISON: Correlation made with concurrent MRI and MRA brain as well as carotid Doppler dated 11/23/2017 TECHNIQUE: 2D and 3D [id number] angiography of the neck was performed. Rotating maximum intensity projection images of the cervical carotid and vertebral arteries were generated. The origins of the common carotid arteries were not visualized, which is a limitation inherent to the non-contrast time of flight technique. . FINDINGS: RIGHT CAROTID ARTERIES: The right and left common carotid arteries, carotid bifurcations and internal carotid arteries appear widely patent. No evidence of occlusion or significant stenosis. VERTEBRAL ARTERIES: There is asymmetry of the vertebral arteries left-sided which is larger in caliber/more dominant than the right on felt to represent an anatomic variation. IMPRESSION: No evidence of of occlusion or significant stenosis
--- NOTE | 2017-11-24 13:47 | CP.PCM.PN ---
<Paras Campbell - Last Filed: 11/24/17 16:18> Subjective - Date & Time of Evaluation Date of Evaluation: 11/24/17 Time of Evaluation: 12:00 - Subjective Subjective: 62 y/o F evaluated and examined by bedside. Pt reports feeling better than yesterday. Pt states her R sided weakness has improved since yesterday. Headache currently is 4/10 in comparison with 9-10/10 yesterday. Pt denies dizziness, lightheadedness, CP, SOB, abdominal pain, change in bowel movement. Objective - Vital Signs/Intake and Output Vital Signs (last 24 hours): Temp Pulse Resp BP Pulse Ox 97.7 F 77 18 161/81 H 97 11/24/17 12:23 11/24/17 12:50 11/24/17 12:23 11/24/17 12:50 11/24/17 12:50 - Medications Medications: Current Medications Acetaminophen (Tylenol 325mg Tab) 650 mg PO Q6 PRN PRN Reason: Headache Last Admin: 11/24/17 09:44 Dose: 650 mg Albuterol Sulfate (Albuterol 0.083% Inhal Kelly (2.5 Mg/3 Ml) Ud) 2.5 mg INH RTID [facility] Last Admin: 11/24/17 13:06 Dose: 2.5 mg Aspirin (Aspirin) 325 mg PO DAILY [facility] Last Admin: 11/24/17 12:40 Dose: 325 mg Atorvastatin Calcium (Lipitor) 80 mg PO DAILY [facility] Last Admin: 11/24/17 09:24 Dose: 80 mg Clopidogrel Bisulfate (Plavix) 75 mg PO DAILY [facility] Last Admin: 11/24/17 09:25 Dose: 75 mg Enoxaparin Sodium (Lovenox) 40 mg SC DAILY [facility] PRN Reason: Protocol Last Admin: 11/24/17 12:25 Dose: 40 mg Fluticasone/Salmeterol (Advair Diskus 250/50) 1 puff IH Q12 [facility] Last Admin: 11/24/17 12:24 Dose: 1 puff - Labs Labs: 11/23/17 06:30 11/23/17 11:10 PT 11.4 Seconds (9.8-13.1) 11/22/17 22:36 INR 1.0 (0.9-1.2) 02/10/18 22:36 APTT 32.1 Seconds (25.6-37.1) 11/22/17 22:36 - Constitutional Appears: Well, No Acute Distress - Head Exam Head Exam: ATRAUMATIC - Eye Exam Eye Exam: EOMI, Normal appearance - ENT Exam ENT Exam: Mucous Membranes Moist - Neck Exam Neck Exam: absent: Lymphadenopathy, Meningismus - Respiratory Exam Respiratory Exam: Clear to Ausculation Bilateral, NORMAL BREATHING PATTERN - Cardiovascular Exam Cardiovascular Exam: REGULAR RHYTHM, +S1, +S2 - GI/Abdominal Exam GI & Abdominal Exam: Soft, Normal Bowel Sounds. absent: Tenderness - Extremities Exam Extremities Exam: Full ROM Additional comments: Strength 4/5 in R upper and R lower extremity; 5/5 on L upper and L lower extremity. - Neurological Exam Neurological Exam: Alert, Awake, Oriented x3 - Psychiatric Exam Psychiatric exam: Normal Mood Assessment and Plan - Assessment and Plan (Free Text) Assessment: 62 y/o F with a PMHx of HTN, Hyperlipidemia, previous TIA, and Asthma admitted for evaluation of right sided weakness. Plan: 1. CVA (cerebral vascular accident) - ASA 325 mg, [id number], high dose Atorvastatin at 80mg daily. - CT of head showed chronic infarct. - MRI Brain No evidence of acute intracranial hemorrhage or infarct. - MRA Brain with NO evidence of occlusion or significant stenosis, large aneurysm or AVM. - MRA Neck with NO f0grhiayp of significant stenosis. - ECHOcardiogram pending final report. - Consult to Neurology, Dr Baldwin - PT,OT, Speech consult 2. Headache - Tylenol prn - YOUSSEF improving. - S/P Magnesium Sulfate, Dexamethasone and Valproate 3. TAMARA (acute kidney injury) - Today's BUN/Creatinine: 26/1.2 - If persistent will do renal sonogram and further work up - ATN vs dehydration, need to r/o HTN Nephropathy 4. Asthma, mild intermittent - Advair 250/50 daily. - Due to episode of Tachycardia s/p Albuterol, Xopenex was ordered. 5. Hypercholesteremia - Atorvastatin 6. Hypertension - hold antihypertensives to allow permissive HTN 7. DVT prophylaxis - Lovenox SC daily <Mahnaz Nunez - Last Filed: 11/24/17 16:22> Objective - Vital Signs/Intake and Output Vital Signs (last 24 hours): Temp Pulse Resp BP Pulse Ox 97.7 F 77 18 161/81 H 97 11/24/17 12:23 11/24/17 12:50 11/24/17 12:23 11/24/17 12:50 11/24/17 12:50 - Medications Medications: Current Medications Acetaminophen (Tylenol 325mg Tab) 650 mg PO Q6 PRN PRN Reason: Headache Last Admin: 11/24/17 09:44 Dose: 650 mg Aspirin (Aspirin) 325 mg PO DAILY [facility] Last Admin: 11/24/17 12:40 Dose: 325 mg Atorvastatin Calcium (Lipitor) 80 mg PO DAILY [facility] Last Admin: 11/24/17 09:24 Dose: 80 mg Clopidogrel Bisulfate (Plavix) 75 mg PO DAILY [facility] Last Admin: 11/24/17 09:25 Dose: 75 mg Enoxaparin Sodium (Lovenox) 40 mg SC DAILY [facility] PRN Reason: Protocol Last Admin: 11/24/17 12:25 Dose: 40 mg Levalbuterol HCl (Xopenex) 0.63 mg INH RQ8 PRN PRN Reason: Shortness of Breath Fluticasone/Salmeterol (Advair Diskus 250/50) 1 puff IH Q12 [facility] Last Admin: 11/24/17 12:24 Dose: 1 puff - Labs Labs: 11/23/17 06:30 11/23/17 11:10 PT 11.4 Seconds (9.8-13.1) 11/22/17 22:36 INR 1.0 (0.9-1.2) 11/22/17 22:36 APTT 32.1 Seconds (25.6-37.1) 11/22/17 22:36 Assessment and Plan (1) CVA (cerebral vascular accident) Status: Acute (2) Headache Status: Acute (3) TAMARA (acute kidney injury) Status: Acute (4) Asthma Status: Chronic (5) Hypercholesteremia Status: Chronic (6) Hypertension Status: Chronic (7) DVT prophylaxis Status: Acute Attending/Attestation - Attestation I have personally seen and examined this patient.: Yes I have fully participated in the care of the patient.: Yes I have reviewed all pertinent clinical information, including history, physical exam and plan: Yes Notes (Text): Additional Dx: Sinus Tachycardia - this happened after pt received Albuterol nebulizer -EKG done- noted deeper T wave inversion, ? Lead positioning - will check enzymes Troponin stat - TSH normal
[2017-11-24] MEDS ORDERED: Levalbuterol 0.63 MG/3 ML Inhal Soln UD INH PRN (14:37)
--- NOTE | 2017-11-24 20:11 | CARD ---
APPROVED REPORT EXAM: Three-dimensional, Two-dimensional and M-mode echocardiogram with Doppler and color Doppler. Other Information Quality : GoodRhythm : NSR INDICATION CVA/TIA Echo Enhancing Agent Indication: Rule Out Septal Defect Agent/Amount Used: Agitated Saline 2D DIMENSIONS IVSd1.22 (0.7-1.1cm)LVDd3.46 (3.9-5.9cm) LVOT Diameter2.33 (1.8-2.4cm)PWd0.83 (0.7-1.1cm) IVSs1.23 (0.8-1.2cm)LVDs2.31 (2.5-4.0cm) FS (%) 33.2 %PWs1.03 (0.8-1.2cm) M-Mode DIMENSIONS Left Atrium (MM)3.85 (2.5-4.0cm)IVSd1.26 (0.7-1.1cm) Aortic Root3.53 (2.2-3.7cm)LVDd4.35 (4.0-5.6cm) Aortic Cusp Exc.2.18 (1.5-2.0cm)PWd0.88 (0.7-1.1cm) IVSs1.47 cmFS (%) 51 % LVDs2.15 (2.0-3.8cm)PWs1.29 cm Mitral Valve MV E Qdfvuuoy84.9cm/sMV DECEL [id number] A Sjuefsnl14.9cm/s MV QPI50cxP/A ratio1.0MVA (PHT)2.63cm2 TDI E/Lateral E'0.0E/Medial E'0.0 Pulmonary Valve PV Peak Drpzwrfj017.8cm/s LEFT VENTRICLE The left ventricle is normal in size. There is normal left ventricular wall thickness. The left ventricular function is normal. The left ventricular ejection fraction is - 65%. There is normal LV segmental wall motion. Transmitral Doppler flow pattern is abnormal. No left ventricle thrombus noted on this study. There is no ventricular septal defect visualized. There is no left ventricular aneurysm. There is no mass noted in the left ventricle. RIGHT VENTRICLE The right ventricle is normal size. There is normal right ventricular wall thickness. The right ventricular systolic function is normal. ATRIA The left atrium size is normal. There is no thrombus suspected in the left atrium. The right atrium size is normal. The interatrial septum is intact with no evidence for an atrial septal defect. AORTIC VALVE The aortic valve is normal in structure. No aortic regurgitation is present. There is no aortic valvular stenosis. MITRAL VALVE The mitral valve is normal in structure. There is no evidence of mitral valve prolapse. There is no mitral valve stenosis. Mitral regurgitation is trace. TRICUSPID VALVE The tricuspid valve is normal in structure. There is no tricuspid valve regurgitation noted. There is no tricuspid valve prolapse or vegetation. There is no tricuspid valve stenosis. PULMONIC VALVE The pulmonary valve is normal in structure. There is no pulmonic valvular regurgitation. GREAT VESSELS The aortic root is normal in size. The IVC is normal in size and collapses >50% with inspiration. PERICARDIAL EFFUSION The pericardium appears normal. There is no pleural effusion. <Conclusion> The study is of fair quality. The left ventricle is normal in size and wall thickness. The left ventricular function is normal. The left ventricular ejection fraction is - 65%. The left atrium, right ventricle and right atrium are normal in size. The mitral, aortic and tricuspid valves are normal. There is trace mitral regurgitation.
[2017-11-25 00:34] VITALS: RESP 18
[2017-11-25] MEDS: Fluticasone-Salmeterol 250-50mcg Diskus IH SCH (09:39)
[2017-11-25] MEDS: Enoxaparin 40 mg Syringe SC SCH (09:41)
[2017-11-25 09:49] LABS: BLOOD UREA NITROGEN 17 mg/dl (7-17); CALCIUM 10.1 mg/dL (8.4-10.2); GFR AFRICAN-AMERICAN > 60; GFR NON-AFRICAN AMERICAN > 60
--- NOTE | 2017-11-25 10:06 | CARD ---
APPROVED REPORT EKG Measurement Heart [id number] <Conclusion> Normal sinus rhythm Possible inferior-posterior infarct, age undetermined ST & T wave abnormality, consider lateral ischemia Abnormal ECG artefact present
--- NOTE | 2017-11-25 10:10 | CARD ---
APPROVED REPORT EKG Measurement Heart [id number] MD 120P [id number] <Conclusion> Sinus tachycardia Inferior infarct, age undetermined-not diagnostic ST & T wave abnormality, consider anterior ischemia Abnormal ECG
[2017-11-25 12:35] VITALS: BP 129/62; PULSE 67; TEMP 98; O2SAT 95
--- NOTE | 2017-11-25 13:27 | CP.PCM.DIS ---
Provider - Provider Date of Admission: 11/22/17 23:00 Attending physician: Percy Fay MD Primary care physician: Dr Martinez Consults: Neurology: Dr Baldwin. Time Spent in preparation of Discharge (in minutes): 30 Diagnosis - Discharge Diagnosis (1) TIA (transient ischemic attack) Status: Acute Comment: -Resolved. Pt educated on signs and symptoms for CVA, pt instructed to return to ER if symptomatic. -Continue with Aspirin 81mg, Plavix 75mg and Atorvastatin 80mg at home. Prescriptions provided. Follow up with PCP within 1 week. (2) Asthma Status: Chronic Comment: -Pt initiated on Advair 250/50, Rx provided to pt upon discharge. -C/ w with Albuterol PRN. (3) Hypercholesteremia Status: Chronic Comment: -Atorvastatin increased to 80 mg daily and to f/u with PCP within 1 week. (4) Hypertension Status: Chronic Comment: -Pt intrsucted to take Bisoprolol 50mg only and to F/U with PCP within 1 week. Hospital Course - Lab Results Lab Results: Most Recent Lab Values WBC 10.7 K/uL (4.8-10.8) 11/23/17 06:30 RBC 4.21 Mil/uL (3.80-5.20) 11/23/17 06:30 Hgb 11.5 g/dL (12.0-16.0) L 11/23/17 06:30 Hct 35.3 % (34.0-47.0) 11/23/17 06:30 MCV 83.8 fl (81.0-99.0) 11/23/17 06:30 MCH 27.4 pg (27.0-31.0) 11/23/17 06:30 MCHC 32.7 g/dL (33.0-37.0) L 11/23/17 06:30 RDW 13.1 % (11.5-14.5) 11/23/17 06:30 Plt Count 259 K/uL (130-400) 11/23/17 06:30 MPV 8.7 fl (7.2-11.7) 11/22/17 22:36 Neut % (Auto) 54.9 % (50.0-75.0) 11/22/17 22:36 Lymph % (Auto) 32.1 % (20.0-40.0) 11/22/17 22:36 [place] % (Auto) 8.7 % (0.0-10.0) 11/22/17 22:36 Eos % (Auto) 3.4 % (0.0-4.0) 11/22/17 22:36 Baso % (Auto) 0.9 % (0.0-2.0) 11/22/17 22:36 Neut # (Auto) 7.5 K/uL (1.8-7.0) H 11/22/17 22:36 Lymph # (Auto) 4.4 K/uL (1.0-4.3) H 11/22/17 22:36 [place] # (Auto) 1.2 K/uL (0.0-0.8) H 11/22/17 22:36 Eos # (Auto) 0.5 K/uL (0.0-0.7) 11/22/17 22:36 Baso # (Auto) 0.1 K/uL (0.0-0.2) 11/22/17 22:36 PT 11.4 Seconds (9.8-13.1) 11/22/17 22:36 INR 1.0 (0.9-1.2) 11/22/17 22:36 APTT 32.1 Seconds (25.6-37.1) 11/22/17 22:36 Sodium 141 mmol/l (132-148) 11/25/17 09:00 Potassium 4.5 MMOL/L (3.6-5.0) 11/25/17 09:00 Chloride 107 mmol/L (98-107) 11/25/17 09:00 Carbon Dioxide 22 mmol/L (22-30) 11/25/17 09:00 Anion Gap 17 (10-20) 11/25/17 09:00 BUN 17 mg/dl (7-17) 11/25/17 09:00 Creatinine 0.8 mg/dl (0.7-1.2) 11/25/17 09:00 Est GFR ( Amer) > 60 11/25/17 09:00 Est GFR (Non-Af Amer) > 60 11/25/17 09:00 POC Glucose (mg/dL) 104 mg/dL (65-110) 11/22/17 22:17 Random Glucose 118 mg/dL (65-105) H 11/25/17 09:00 Hemoglobin A1c 5.7 % (4.2-6.5) 11/22/17 22:36 Calcium 10.1 mg/dL (8.4-10.2) 11/25/17 09:00 Total Bilirubin 0.3 mg/dl (0.2-1.3) 11/22/17 22:36 AST 56 U/L (14-36) H 11/22/17 22:36 ALT 50 U/L (9-52) 11/22/17 22:36 Alkaline Phosphatase 250 U/L (38-126) H 11/22/17 22:36 Troponin I < 0.0120 ng/mL (0.00-0.120) 11/25/17 01:54 Total Protein 8.1 G/DL (6.3-8.2) 11/22/17 22:36 Albumin 4.6 g/dL (3.5-5.0) 11/22/17 22:36 Globulin 3.5 gm/dL (2.2-3.9) 11/22/17 22:36 Albumin/Globulin Ratio 1.3 (1.0-2.1) 11/22/17 22:36 Triglycerides 125 mg/DL (0-149) D 11/23/17 11:10 Cholesterol 148 mg/dL (0-199) 11/23/17 11:10 LDL Cholesterol Direct 80 mg/dL (0-129) 11/23/17 11:10 HDL Cholesterol 42 MG/DL (30-70) 11/23/17 11:10 Vitamin B12 306 pg/mL (239-931) 11/23/17 06:30 TSH 3rd Generation 3.45 mIU/ML (0.46-4.68) 11/23/17 06:30 - Hospital Course Hospital Course: 62 y/o F with a PMHx of asthma, HTN and HLD admitted for evaluation of R sided weakness, severe headache and possible TIA. During hospitalization, pt was under pharmacotherapy consisting of ASA 325 mg, [id number] and Atorvastatin at 80mg daily. - CT of head showed chronic infarct. - MRI Brain NO evidence of acute intracranial hemorrhage or infarct. - MRA Brain with NO evidence of occlusion or significant stenosis, large aneurysm or AVM. - MRA Neck with NO evidence of significant stenosis. - ECHOcardiogram with LVEF 65%, unremarkable. - Neurology was consulted, pt was administered 1 dose of IV Decadron, Magnessium Sulfate and Valproate for headache. Pt stable, R side weakness resolved, headache resolved, afebrile, tolerating PO able to ambulate. Pt discharged today with instructions to follow-up PCP within 1 week. ER precautions discussed. - Date & Time of H&P Date of H&P: 11/23/17 Time of H&P: 08:35 Discharge Exam - Head Exam Head Exam: ATRAUMATIC - Eye Exam Eye Exam: EOMI, Normal appearance, PERRL - ENT Exam ENT Exam: Mucous Membranes Moist - Neck Exam Neck exam: Full Rom - Respiratory Exam Respiratory Exam: Clear to PA & Lateral, NORMAL BREATHING PATTERN, UNREMARKABLE - Cardiovascular Exam Cardiovascular Exam: REGULAR RHYTHM, +S1, +S2 - GI/Abdominal Exam GI & Abdominal Exam: Normal Bowel Sounds, Soft. absent: Guarding, Tenderness - Extremities Exam Extremities exam: full ROM Additional comments: Strength 5/5 bilaterally, normal ROM b/l, SILT b/l. - Neurological Exam Neurological exam: Alert, Oriented x3 - Psychiatric Exam Psychiatric exam: Normal Affect, Normal Mood Discharge Plan - Discharge Medications Prescriptions: Aspirin [Aspirin Chewable] 81 mg PO DAILY #30 ctb Atorvastatin [Lipitor] 80 mg PO DAILY #30 tab Clopidogrel [Plavix] 75 mg PO DAILY #30 tab Fluticasone/Salmeterol 250/50 [Advair Diskus 250/50] 1 puff IH Q12 #1 inh - Follow Up Plan Condition: STABLE Disposition: HOME/ ROUTINE Instructions: Acute Headache (DC), Stroke (DC) Additional Instructions: follow up with pmd in 1 week Referrals: Horacio Martinez MD [Family Provider] - Nolvia Baldwin MD [Medical Doctor] -
== END 2017-11-25 15:21 | disposition home or self-care (01) | DRG 69 ==
LOC: H.ER 21:39 → H.ERHOLD 23:00 → H.TEL 11-23 18:36
PROVIDERS: ADMIT Internal Medicine; ATTEND Internal Medicine
DX: G45.9 Transient cerebral ischemic attack, unspecified (principal); N17.9 Acute kidney failure, unspecified; Z86.73 Personal history of transient ischemic attack (TIA), and cerebral infarction without residual deficits; E78.00 Pure hypercholesterolemia, unspecified; E78.5 Hyperlipidemia, unspecified; I10 Essential (primary) hypertension; J45.20 Mild intermittent asthma, uncomplicated; K29.70 Gastritis, unspecified, without bleeding; G43.909 Migraine, unspecified, not intractable, without status migrainosus; R00.0 Tachycardia, unspecified; Z87.891 Personal history of nicotine dependence; R53.1 Weakness

== ENCOUNTER 2017-12-20 15:32 | Emergency (ER) | payer MEDICAID, OTHER ==
[2017-12-20 15:32] VITALS: BMI 22.6
[2017-12-20 15:36] VITALS: TEMP 97.3
[2017-12-20] MEDS ORDERED: Sodium Chloride 0.9% 1,000 ML IV STA (16:48)
--- NOTE | 2017-12-20 16:54 | ED PDOC ---
HPI: Abdomen Time Seen by Provider: 12/20/17 15:46 Chief Complaint (Nursing): Abdominal Pain Chief Complaint (Provider): Abdominal pain History Per: Patient History/Exam Limitations: no limitations Additional Complaint(s): Pt reports nausea, vomiting and abdominal pain X 1 day, finished course of antibiotics for bronchitis 2 days ago. Denies fever, constipation, diarrhea, dysuria, hematuria, vaginal bleeding. Past Medical History Reviewed: Nursing Documentation, Vital Signs Vital Signs: Last Vital Signs Temp 97.3 F L 12/20/17 15:34 Pulse 59 L 12/20/17 22:27 Resp 16 12/20/17 22:27 BP 113/57 L 12/20/17 22:27 Pulse Ox 97 12/21/17 01:31 - Medical History PMH: Asthma, Gastritis, HTN, Hypercholesterolemia, Migraine, TIA Denies: HIV, Chronic Kidney Disease - Surgical History Surgical History: Cholecystectomy - Family History Family History: States: Unknown Family Hx - Social History Current smoker - smoking cessation education provided: No Alcohol: None - Immunization History Hx Tetanus Toxoid Vaccination: Yes Hx Influenza Vaccination: Yes Hx Pneumococcal Vaccination: Yes - Home Medications Home Medications: Ambulatory Orders Medication Instructions Recorded Albuterol HFA [Ventolin HFA 90 2 puff IH Q4H PRN #0 inhaler 01/05/17 mcg/actuation (8 g)] Montelukast [Singulair] 10 mg PO DAILY tab 01/05/17 Aspirin [Aspirin Chewable] 81 mg PO DAILY #30 ctb 11/25/17 Fluticasone/Salmeterol 250/50 1 puff IH Q12 #1 inh 11/25/17 [Advair Diskus 250/50] Acetaminophen/Butalbital/Caf 1 tab PO Q6 PRN 12/20/17 [Fioricet] Atorvastatin [Lipitor] 20 mg PO DAILY 12/20/17 Bisoprolol [Zebeta] 5 mg PO DAILY 12/20/17 Ibuprofen [Motrin Tab] 600 mg PO Q6 #30 tab 12/20/17 Losartan [Cozaar] 100 mg PO DAILY 12/20/17 PARoxetine [Paxil] 20 mg PO DAILY 12/20/17 amLODIPine [Norvasc] 5 mg PO DAILY 12/20/17 - Allergies Allergies/Adverse Reactions: Allergies Allergy/AdvReac Type Severity Reaction Status Date / Time No Known Allergies Allergy Verified 12/20/17 15:34 Review of Systems Constitutional: Negative for: Fever, Chills Cardiovascular: Negative for: Chest Pain, Palpitations Respiratory: Negative for: Cough, Shortness of Breath Gastrointestinal: Positive for: Nausea, Vomiting, Abdominal Pain. Negative for : Diarrhea, Hematochezia, Hematemesis Genitourinary Female: Negative for: Dysuria, Hematuria, Vaginal Bleeding Musculoskeletal: Negative for: Neck Pain, Back Pain Skin: Negative for: Rash, Lesions Neurological: Negative for: Weakness, Numbness, Headache, Dizziness Physical Exam - Reviewed Nursing Documentation Reviewed: Yes Vital Signs Reviewed: Yes - Physical Exam Appears: Positive for: Well, No Acute Distress Head Exam: Positive for: ATRAUMATIC, NORMAL INSPECTION Skin: Positive for: Normal Color, Warm, Dry Eye Exam: Positive for: Normal appearance, EOMI, PERRL Cardiovascular/Chest: Positive for: Regular Rate, Rhythm Respiratory: Positive for: Normal Breath Sounds. Negative for: Rales, Rhonchi, Wheezing Gastrointestinal/Abdominal: Positive for: Bowel Sounds, Soft, Tenderness ( Generalized ). Negative for: Mass, Distended, Guarding, Rebound Back: Positive for: Normal Inspection. Negative for: L CVA Tenderness, R CVA Tenderness Extremity: Positive for: Normal ROM Neurologic/Psych: Positive for: Alert, Oriented - Laboratory Results Result Diagrams: 12/20/17 16:59 12/20/17 16:59 - ECG O2 Sat by Pulse Oximetry: 98 Medical Decision Making Medical Decision Makin yo female with vomiting and abdominal pain. - labs - EKG - CT abd/pelvis - IVF - Morphine - Zofran Accession No. : [id number] Patient Name / ID : RIRI DUBON / [id number] Exam Date : 12/20/2017 18:53:12 ( Approved ) Study Comment : Sex / Age : F / 62Y Creator : ALAN CHACON Dictator : Secondary School Registrar : Communication Consultant : ALAN CHACON Approver2 : Report Date : 12/20/2017 20:46:00 My Comment : [facility] Division of Radiology [address] [facility] [address] Tel. no. Patient Name: JAGDISH MENEZES Pt. Address: [address] [place] [address]. Rec #: [id number] [place] [address]: Beny ROD, Chanelle Fan Pt CELL Order Location: [facility] : 1955 Female Age: 62 Order #: [id number] Reason for exam: Gen abd pain, vomiting CT Scan ABD PELVIS IV CONTRAST ONLY Exam Date: 12/20/17 This imaging exam was performed at [facility] ADDENDUM Addendum created by Alan Chacon MD on 12/20/2017 9:18:38 PM EST Findings were discussed with Dr. Birch at 9:18 PM EST on 12/20/2017. Initial report created on 12/20/2017 8:46:11 PM EST EXAM: CT Abdomen and Pelvis With Intravenous Contrast EXAM DATE/TIME: 12/20/2017 4:47 PM CLINICAL HISTORY: 62 years old, female; Pain; Abdominal pain; Generalized; Additional info: Gen abd pain, vomiting TECHNIQUE: Axial computed tomography images of the abdomen and pelvis with intravenous contrast. All CT scans at this facility use one or more dose reduction techniques, viz.: automated exposure control; ma/kV adjustment per patient size (including targeted exams where dose is matched to indication; i.e. head); or iterative reconstruction technique. Coronal and sagittal reformatted images were created and reviewed. CONTRAST: 95 mL of OMNIPAQUE-300 administered intravenously. COMPARISON: CT - ABD PELVIS PO IV CONTRAST 2016-07-23 13:17 FINDINGS: Lower thorax: Heart size is normal. There is minimal atelectasis/scarring at the lung bases. There small granulomas at the right base. There is an old right rib fracture. ABDOMEN: Liver: There is diffusely abnormal perfusion pattern in the liver.. There are multiple hepatic granulomas. Gallbladder and bile ducts: Gallbladder is absent.There is prominence of the common duct. Pancreas: Pancreas is mildly atrophic. Spleen: unremarkable Adrenals: unremarkable Kidneys and ureters: unremarkable Stomach and bowel: Stomach is partially distended. There is an air-fluid level. Rotation is normal. There is no obstruction. There is mild fatty infiltration of the terminal ileal wall. Appendix is unremarkable. Colon is incompletely distended which limits evaluation. There is scattered diverticulosis Appendix: See stomach and bowel PELVIS: Bladder: Bladder is incompletely distended. Reproductive: Uterus is absent. There are no adnexal masses. ABDOMEN and PELVIS: Intraperitoneal space: There is no free air or free fluid. Bones/joints: There are degenerative changes in the osseus structures. Soft tissues: There is a small fat containing umbilical hernia. There is a small lipoma in the right lateral abdominal wall Vasculature: There are vascular calcifications. Lymph nodes: unremarkable IMPRESSION: Nutmeg appearance to the liver suggests hepatic venous congestion, acute hepatitis could cause a similar appearance; prior granulomatous disease; dilated common duct status post cholecystectomy; hysterectomy; no CT findings of appendicitis or diverticulitis Additional nonemergent findings as described above. Addendum Dictated By: Alan Chacon MD Addendum Dictated Date Time:12/20/1707/30/2118 Addendum Signed by:Alan Chacon MD Addendum signed Date Time: 12/20/172117 Addendum Transcribed By: YEFRI Addendum Transcribed Date Time: 12/20/1707/30/2118 ANNEMARIE/CHERIE EXAM: CT Abdomen and Pelvis With Intravenous Contrast EXAM DATE/TIME: 12/20/2017 4:47 PM CLINICAL HISTORY: 62 years old, female; Pain; Abdominal pain; Generalized; Additional info: Gen abd pain, vomiting TECHNIQUE: Axial computed tomography images of the abdomen and pelvis with intravenous contrast. All CT scans at this facility use one or more dose reduction techniques, viz.: automated exposure control; ma/kV adjustment per patient size (including targeted exams where dose is matched to indication; i.e. head); or iterative reconstruction technique. Coronal and sagittal reformatted images were created and reviewed. CONTRAST: 95 mL of OMNIPAQUE-300 administered intravenously. COMPARISON: CT - ABD PELVIS PO IV CONTRAST 2016-07-23 13:17 FINDINGS: Lower thorax: Heart size is normal. There is minimal atelectasis/scarring at the lung bases. There small granulomas at the right base. There is an old right rib fracture. ABDOMEN: Liver: There is diffusely abnormal perfusion pattern in the liver.. There are multiple hepatic granulomas. Gallbladder and bile ducts: Gallbladder is absent.There is prominence of the common duct. Pancreas: Pancreas is mildly atrophic. Spleen: unremarkable Adrenals: unremarkable Kidneys and ureters: unremarkable Stomach and bowel: Stomach is partially distended. There is an air-fluid level. Rotation is normal. There is no obstruction. There is mild fatty infiltration of the terminal ileal wall. Appendix is unremarkable. Colon is incompletely distended which limits evaluation. There is scattered diverticulosis Appendix: See stomach and bowel PELVIS: Bladder: Bladder is incompletely distended. Reproductive: Uterus is absent. There are no adnexal masses. ABDOMEN and PELVIS: Intraperitoneal space: There is no free air or free fluid. Bones/joints: There are degenerative changes in the osseus structures. Soft tissues: There is a small fat containing umbilical hernia. There is a small lipoma in the right lateral abdominal wall Vasculature: There are vascular calcifications. Lymph nodes: unremarkable IMPRESSION: Nutmeg appearance to the liver suggests hepatic venous congestion, acute hepatitis could cause a similar appearance; prior granulomatous disease; dilated common duct status post cholecystectomy; hysterectomy; no CT findings of appendicitis or diverticulitis Additional nonemergent findings as described above. Dictated By: Alan Chacon MD, MD Dictated Date/Time: 12/20/172045 Signed By: Alan Chacon MD Date Signed: 2045 Transcribed By: YEFRI Transcribe Date/Time : 12/20/172045 ANNEMARIE/CHERIE 18:10 Pt c/o midsternal chest pain, repeat EKG ordered. EKG #2: Sinus jaymie @ 40, no ST-T changes. Upon review of old notes, pt bradycardic in past, monitor shows HR 40-50s, AAOX3. Pt on Bisoprolol. 19:00 HR 58-65 Disposition - Clinical Impression Clinical Impression: Abdominal pain, Inflammatory liver disease - Disposition Referrals: [facility] [Outside] Kaila Sanchez MD [Medical Doctor] - Disposition Time: 19:00 Condition: STABLE Additional Instructions: Por favor saniya un seguimiento en la clnica para tener un panel de hepatitis hecho. Prescriptions: Ibuprofen [Motrin Tab] 600 mg PO Q6 #30 tab Instructions: Acute Abdomen (Belly Pain), Adult (DC) Forms: [employer] A/S (Ethiopian) Print Language: THAI Patient Signed Over To: Alfredo Ramirez
[2017-12-20 17:04] LABS: BASO % 0.3 % (0.0-2.0); EOS # 0.1 K/uL (0.0-0.7); EOS % 1.1 % (0.0-4.0); LYMPH # 5.3 K/uL (1.0-4.3); LYMPH % 45.7 % (20.0-40.0); MEAN CELL VOLUME 83.6 fl (81.0-99.0); MEAN CORPUSCULAR HEMOGLOBIN 27.7 pg (27.0-31.0); MEAN CORPUSCULAR HGB CONC 33.1 g/dL (33.0-37.0); MEAN PLATELET VOLUME 8.2 fl (7.2-11.7); MONO # 0.8 K/uL (0.0-0.8); MONO % 6.5 % (0.0-10.0); NEUT # 5.4 K/uL (1.8-7.0); NEUT % 46.4 % (50.0-75.0); NRBC % 0.2 % (0.0-0.0); RBC 4.34 Mil/uL (3.80-5.20); RED CELL DISTRIBUTION WIDTH 12.7 % (11.5-14.5); WHITE BLOOD COUNT 11.7 K/uL (4.8-10.8)
[2017-12-20 17:20] LABS: PROTHROMBIN TIME 10.6 Seconds (9.8-13.1)
[2017-12-20 17:37] LABS: ALB/GLOB RATIO 1.2 (1.0-2.1); ALBUMIN 3.9 g/dL (3.5-5.0); ALT/SGPT 54 U/L (9-52); AST/SGOT 36 U/L (14-36); BLOOD UREA NITROGEN 25 mg/dl (7-17); GFR AFRICAN-AMERICAN > 60; GFR NON-AFRICAN AMERICAN 56
[2017-12-20] MEDS ORDERED: Iohexol 300 100 ML IJ ONE (17:51)
[2017-12-20] MEDS ORDERED: Sodium Chloride 0.9% 100 ML ONE (17:52)
[2017-12-20 18:27] LABS: SQUAMOUS EPITHIAL < 1 /hpf (0-5); URINE BILIRUBIN NEGATIVE (NEGATIVE); URINE BLOOD NEGATIVE (NEGATIVE); URINE CLARITY SLIGHTY-CLOUDY (Clear); URINE COLOR YELLOW (YELLOW); URINE GLUCOSE (UA) NEG (Normal); URINE LEUKOCYTE ESTERASE NEG Leu/uL (Negative); URINE PROTEIN 30 mg/dL (NEGATIVE); URINE UROBILINOGEN 0.2-1.0 mg/dL (0.2-1.0)
--- NOTE | 2017-12-20 20:46 | CT ---
EXAM: CT Abdomen and Pelvis With Intravenous Contrast EXAM DATE/TIME: 12/20/2017 4:47 PM CLINICAL HISTORY: 62 years old, female; Pain; Abdominal pain; Generalized; Additional info: Gen abd pain, vomiting TECHNIQUE: Axial computed tomography images of the abdomen and pelvis with intravenous contrast. All CT scans at this facility use one or more dose reduction techniques, viz.: automated exposure control; ma/kV adjustment per patient size (including targeted exams where dose is matched to indication; i.e. head); or iterative reconstruction technique. Coronal and sagittal reformatted images were created and reviewed. CONTRAST: 95 mL of OMNIPAQUE-300 administered intravenously. COMPARISON: CT - ABD PELVIS PO IV CONTRAST 2016-07-23 13:17 FINDINGS: Lower thorax: Heart size is normal. There is minimal atelectasis/scarring at the lung bases. There small granulomas at the right base. There is an old right rib fracture. ABDOMEN: Liver: There is diffusely abnormal perfusion pattern in the liver.. There are multiple hepatic granulomas. Gallbladder and bile ducts: Gallbladder is absent.There is prominence of the common duct. Pancreas: Pancreas is mildly atrophic. Spleen: unremarkable Adrenals: unremarkable Kidneys and ureters: unremarkable Stomach and bowel: Stomach is partially distended. There is an air-fluid level. Rotation is normal. There is no obstruction. There is mild fatty infiltration of the terminal ileal wall. Appendix is unremarkable. Colon is incompletely distended which limits evaluation. There is scattered diverticulosis Appendix: See stomach and bowel PELVIS: Bladder: Bladder is incompletely distended. Reproductive: Uterus is absent. There are no adnexal masses. ABDOMEN and PELVIS: Intraperitoneal space: There is no free air or free fluid. Bones/joints: There are degenerative changes in the osseus structures. Soft tissues: There is a small fat containing umbilical hernia. There is a small lipoma in the right lateral abdominal wall Vasculature: There are vascular calcifications. Lymph nodes: unremarkable IMPRESSION: Nutmeg appearance to the liver suggests hepatic venous congestion, acute hepatitis could cause a similar appearance; prior granulomatous disease; dilated common duct status post cholecystectomy; hysterectomy; no CT findings of appendicitis or diverticulitis Additional nonemergent findings as described above.
[2017-12-20 22:31] VITALS: BP 113/57; PULSE 59; RESP 16
--- NOTE | 2017-12-20 22:31 | ED PDOC ---
"- Laboratory Results Result Diagrams: 12/20/17 16:59 12/20/17 16:59 - ECG O2 Sat by Pulse Oximetry: 97 (RA) Pulse Ox Interpretation: Normal Medical Decision Making Medical Decision Makin:00 --transfer of care endorsed to me by Dr. Swan pending Ct scan and repeat troponin Time: 22:17 EXAM: CT Abdomen and Pelvis With Intravenous Contrast EXAM DATE/TIME: 12/20/2017 4:47 PM CLINICAL HISTORY: 62 years old, female; Pain; Abdominal pain; Generalized; Additional info: Gen abd pain, vomiting TECHNIQUE: Axial computed tomography images of the abdomen and pelvis with intravenous contrast. All CT scans at this facility use one or more dose reduction techniques, viz.: automated exposure control; ma/kV adjustment per patient size (including targeted exams where dose is matched to indication; i.e. head); or iterative reconstruction technique. Coronal and sagittal reformatted images were created and reviewed. CONTRAST: 95 mL of OMNIPAQUE-300 administered intravenously. COMPARISON: CT - ABD PELVIS PO IV CONTRAST 2016-07-23 13:17 FINDINGS: Lower thorax: Heart size is normal. There is minimal atelectasis/scarring at the lung bases. There small granulomas at the right base. There is an old right rib fracture. ABDOMEN: Liver: There is diffusely abnormal perfusion pattern in the liver.. There are multiple hepatic granulomas. Gallbladder and bile ducts: Gallbladder is absent.There is prominence of the common duct. Pancreas: Pancreas is mildly atrophic. Spleen: unremarkable Adrenals: unremarkable MENEZESROSE SCHWARTZANA | Final Radiology Report CONFIDENTIALITY STATEMENT This report is intended only for use by the referring physician, and only in accordance with law. If you received this in error, call [phone]. Page 2 of 2 Kidneys and ureters: unremarkable Stomach and bowel: Stomach is partially distended. There is an air-fluid level. Rotation is normal. There is no obstruction. There is mild fatty infiltration of the terminal ileal wall. Appendix is unremarkable. Colon is incompletely distended which limits evaluation. There is scattered diverticulosis Appendix: See stomach and bowel PELVIS: Bladder: Bladder is incompletely distended. Reproductive: Uterus is absent. There are no adnexal masses. ABDOMEN and PELVIS: Intraperitoneal space: There is no free air or free fluid. Bones/joints: There are degenerative changes in the osseus structures. Soft tissues: There is a small fat containing umbilical hernia. There is a small lipoma in the right lateral abdominal wall Vasculature: There are vascular calcifications. Lymph nodes: unremarkable IMPRESSION: Nutmeg appearance to the liver suggests hepatic venous congestion, acute hepatitis could cause a similar appearance; prior granulomatous disease; dilated common duct status post cholecystectomy; hysterectomy; no CT findings of appendicitis or diverticulitis Additional nonemergent findings as described above. --Patient reports an improvement in symptoms. She currently has no significant derangement in LFTs and is stable for advised outpatient follow up in clinic for hepatitis workup. Return to ED if symptoms persist or worsen. Scribe Attestation: Documented by Nicolle Bravo, acting as a scribe for Alfredo Ramirez MD. Provider Scribe Attestation: All medical record entries made by the Scribe were at my direction and personally dictated by me. I have reviewed the chart and agree that the record accurately reflects my personal performance of the history, physical exam, medical decision making, and the department course for this patient. I have also personally directed, reviewed, and agree with the discharge instructions and disposition. Disposition - Clinical Impression Clinical Impression: Abdominal pain, Inflammatory liver disease - POA Present On Arrival: None - Disposition Referrals: [facility] [Outside] Kaila Sanchez MD [Medical Doctor] - Disposition: Routine/Home Disposition Time: 22:17 Condition: STABLE Additional Instructions: Por favor saniya un seguimiento en la clnica para tener un panel de hepatitis hecho. Prescriptions: Ibuprofen [Motrin Tab] 600 mg PO Q6 #30 tab Instructions: Acute Abdomen (Belly Pain), Adult (DC) Forms: [employer] (Faroese) Print Language: EGYPTIAN"
--- NOTE | 2017-12-21 10:29 | CARD ---
APPROVED REPORT EKG Measurement Heart [id number] <Conclusion> Marked sinus bradycardia Abnormal ECG
--- NOTE | 2017-12-21 10:31 | CARD ---
APPROVED REPORT EKG Measurement Heart [id number] <Conclusion> Sinus bradycardia Nonspecific ST and T wave abnormality Abnormal ECG
[2017-12-24 15:48] VITALS: O2SAT 98
== END 2017-12-20 22:31 | disposition home or self-care (01) ==
LOC: H.ER 15:32
DX: K75.9 Inflammatory liver disease, unspecified (principal); R10.9 Unspecified abdominal pain; E78.00 Pure hypercholesterolemia, unspecified; I10 Essential (primary) hypertension; J45.909 Unspecified asthma, uncomplicated; Z86.73 Personal history of transient ischemic attack (TIA), and cerebral infarction without residual deficits; Z90.49 Acquired absence of other specified parts of digestive tract; Z90.710 Acquired absence of both cervix and uterus
CPT/HCPCS: 74177; 80053; 81003; 82948; 84484; 85025; 85610; 85730; 93005; 99284; J2270; J2405; J7040; Q9967

== ENCOUNTER 2019-02-16 13:12 | Inpatient (IN) | payer MEDICAID, OTHER ==
[2019-02-16 13:12] VITALS: BMI 22.6
[2019-02-16] MEDS ORDERED: Albuterol-Ipratrop 3 mg / 0.5 (3 ml) UD INH STA (15:37)
[2019-02-16] MEDS ORDERED: Iohexol 240 (50 ml) PO ONE (15:38)
--- NOTE | 2019-02-16 15:48 | ED PDOC ---
HPI: SOB/CHF/COPD Time Seen by Provider: 02/16/19 13:15 Chief Complaint (Nursing): Shortness Of Breath Chief Complaint (Provider): Shortness of breath History Per: Patient History/Exam Limitations: no limitations Onset/Duration Of Symptoms: Days (1 week) Current Symptoms Are (Timing): Still Present Quality: Tightness Exacerbating Factor(s): Coughing Additional History Per: Patient Additional Complaint(s): 63yo female, with history of hypertension, high cholesterol, asthma, TIA, comes to ER reporting shortness of breath with associated chest tightness and subsequent chest pain due to coughing. She has had symptoms for 1 week and reports associated tactile fever. Patient has been taking over the counter cough and cold medication with no relief of symptoms. She also reports tremors in her hands. No additional complaints. Past Medical History Reviewed: Historical Data, Nursing Documentation, Vital Signs Vital Signs: Last Vital Signs Temp 97.9 F 02/16/19 13:26 Pulse 91 H 02/16/19 13:26 Resp 20 02/16/19 14:06 BP 174/85 H 02/16/19 13:26 Pulse Ox 96 02/16/19 13:26 Primary Care Provider: Mauricio Hoskins - Medical History PMH: Asthma, Gastritis, HTN, Hypercholesterolemia, Migraine, TIA Denies: HIV, Chronic Kidney Disease - Surgical History Surgical History: Cholecystectomy - Family History Family History: States: Unknown Family Hx - Living Arrangements Living Arrangements: With Family - Social History Current smoker - smoking cessation education provided: No Alcohol: None Drugs: Denies - Immunization History Hx Tetanus Toxoid Vaccination: Yes Hx Influenza Vaccination: Yes Hx Pneumococcal Vaccination: Yes - Home Medications Home Medications: Ambulatory Orders Medication Instructions Recorded Atorvastatin [Lipitor] 20 mg PO DAILY 12/20/17 Losartan [Cozaar] 100 mg PO DAILY 12/20/17 Albuterol 0.083% [Albuterol 0.083% 3 ml IH Q4 PRN 02/16/19 Inhal Kelly (2.5 mg/3 ml) UD] Aspirin [Ecotrin] 81 mg PO DAILY 02/16/19 Montelukast [Singulair] 10 mg PO HS 02/16/19 Multivitamin/Iron/Folic Acid 1 tab PO DAILY 02/16/19 [Centrum Complete Multivit Tab] amLODIPine [Norvasc] 10 mg PO DAILY 02/16/19 diaZEpam [Valium] 5 mg PO DAILY PRN 02/16/19 Azithromycin [Zithromax] 500 mg PO DAILY #1 tablet 02/18/19 Guaifenesin [Mucinex] 600 mg PO Q12 #14 tab.er.12h 02/18/19 Promethazine [Phenergan Syrup] 12.5 mg PO Q8 #1 bottle 02/18/19 - Allergies Allergies/Adverse Reactions: Allergies Allergy/AdvReac Type Severity Reaction Status Date / Time No Known Allergies Allergy Verified 02/16/19 13:26 Curb-65 Severity Score - CURB-65 Severity Score Confusion: No Bun >19mg/dl (>7mmol/L): No Respiratory Rate greater than/equal to 30: No Systolic BP <90 or Diastolic BP less than/equal 60mmHg: No Age >64: Yes Curb-65 Score: 1 Percentage 30-day mortality: 2.7% Wells Criteria for PE - Wells Criteria for Pulmonary Embolism Clinical Signs and Symptoms of DVT: No P.E is #1 Diagnosis, or Equally Likely: No Heart Rate >100: No Immobilization at least 3 days;Surgery previous 4 weeks: No Previous, objectively diagnosed PE or DVT: No Hemoptysis: No Malignancy w/treatment within 6 months, or palliative: No Total Score: 0 Review of Systems ROS Statement: Except As Marked, All Systems Reviewed And Found Negative Constitutional: Positive for: Fever (tactile) Cardiovascular: Positive for: Chest Pain Respiratory: Positive for: Cough, Shortness of Breath Physical Exam - Reviewed Nursing Documentation Reviewed: Yes Vital Signs Reviewed: Yes - Physical Exam Appears: Positive for: Non-toxic, Uncomfortable Head Exam: Positive for: ATRAUMATIC, NORMAL INSPECTION, NORMOCEPHALIC Skin: Positive for: Normal Color Eye Exam: Positive for: Normal appearance, EOMI, PERRL ENT: Positive for: Normal ENT Inspection Neck: Positive for: Supple Cardiovascular/Chest: Positive for: Tachycardia (regular rate) Respiratory: Positive for: Other (tachypneic). Negative for: Normal Breath Sounds (+ coarse breath sounds bilaterally), Wheezing, Respiratory Distress Gastrointestinal/Abdominal: Positive for: Soft, Tenderness (right lower quadrant). Negative for: Guarding, Rebound Back: Positive for: Normal Inspection Extremity: Positive for: Normal ROM. Negative for: Pedal Edema, Deformity Neurological/Psych: Positive for: Awake, Alert, Normal Tone - Laboratory Results Result Diagrams: 02/18/19 04:40 02/18/19 04:40 - ECG ECG: Positive for: Interpreted By Me, Viewed By Me ECG Rhythm: Positive for: Normal QRS, Normal ST Segment, Sinus Tachycardia O2 Sat by Pulse Oximetry: 96 (RA) Pulse Ox Interpretation: Normal Medical Decision Making Medical Decision Making: Impression: shortness of breath, chest tightness r/o PE r/o appendicitis Plan: -- Labs -- EKG -- Duoneb 3ml INH -- CXR -- CT Chest -- CT Abdomen/Plevis w/ contrast 1700 Patient resting in room is in no acute distress Patient to be signed out to Dr. Swan pending labs, CT studies, and disposition. Scribe Attestation: Documented by Dianne Campos, acting as a scribe for Shirley Herrera MD. Provider Scribe Attestation: All medical record entries made by the Scribe were at my direction and per sonally dictated by me. I have reviewed the chart and agree that the record accurately reflects my personal performance of the history, physical exam, medical decision making, and the department course for this patient. I have also personally directed, reviewed, and agree with the discharge instructions and disposition. Disposition - Clinical Impression Clinical Impression: Chest pain, Tachycardia, unspecified - Patient ED Disposition Is Patient to be Admitted: Transfer of Care - Disposition Disposition: Transfer of Care Disposition Time: 16:30 Condition: STABLE
[2019-02-16] MEDS ORDERED: Albuterol-Ipratrop 3 mg / 0.5 (3 ml) UD ONE (15:54)
[2019-02-16] MEDS ORDERED: Iohexol 240 (50 ml) ONE (15:55)
[2019-02-16 16:15] LABS: BASO # 0.1 K/uL (0.0-0.2); BASO % 0.9 % (0.0-2.0); EOS # 0.2 K/uL (0.0-0.7); EOS % 1.7 % (0.0-4.0); HEMOGLOBIN 12.8 g/dL (12.0-16.0); LYMPH # 2.4 K/uL (1.0-4.3); LYMPH % 27.2 % (20.0-40.0); MEAN CELL VOLUME 80.6 fl (81.0-99.0); MEAN CORPUSCULAR HEMOGLOBIN 27.2 pg (27.0-31.0); MEAN CORPUSCULAR HGB CONC 33.8 g/dL (33.0-37.0); MEAN PLATELET VOLUME 7.9 fl (7.2-11.7); MONO # 0.4 K/uL (0.0-0.8); MONO % 4.5 % (0.0-10.0); NEUT # 5.8 K/uL (1.8-7.0); NEUT % 65.7 % (50.0-75.0); NRBC % 0.1 % (0.0-0.0); RBC 4.71 Mil/uL (3.80-5.20); RED CELL DISTRIBUTION WIDTH 13.8 % (11.5-14.5); WHITE BLOOD COUNT 8.8 K/uL (4.8-10.8)
[2019-02-16 16:28] LABS: ALB/GLOB RATIO 1.4 (1.0-2.1); ALBUMIN 4.5 g/dL (3.5-5.0); ALT/SGPT 60 U/L (9-52); AST/SGOT 52 U/L (14-36); BLOOD UREA NITROGEN 12 mg/dl (7-17); CALCIUM 10.9 mg/dL (8.4-10.2); GFR NON-AFRICAN AMERICAN > 60
--- NOTE | 2019-02-16 17:00 | RAD ---
Date of service: 02/16/2019 HISTORY: Shortness of breath COMPARISON: 11/22/2017 TECHNIQUE: Chest PA and lateral FINDINGS: LINES AND TUBES: None. LUNG AND PLEURA: The lungs are hyperinflated and there is peribronchial thickening with chronic changes in both lungs. No focal consolidation. No pleural effusion or pneumothorax. HEART AND MEDIASTINUM: The heart is not enlarged. There are aortic atherosclerotic calcifications present. The hilar and mediastinal contours are within normal limits. SKELETAL STRUCTURES: The bony structures are within normal limits for the patient's age. VISUALIZED UPPER ABDOMEN: Normal. OTHER FINDINGS: None. IMPRESSION: No active pulmonary disease. COPD.
--- NOTE | 2019-02-16 17:12 | ED PDOC ---
- Laboratory Results Result Diagrams: 02/18/19 04:40 02/18/19 04:40 Lab Results: Total Bilirubin 0.5 mg/dl (0.2-1.3) 02/16/19 16:04 AST 52 U/L (14-36) H D 02/16/19 16:04 ALT 60 U/L (9-52) H D 02/16/19 16:04 Alkaline Phosphatase 98 U/L (38-126) 02/16/19 16:04 Total Protein 7.7 G/DL (6.3-8.2) 02/16/19 16:04 Albumin 4.5 g/dL (3.5-5.0) 02/16/19 16:04 Globulin 3.3 gm/dL (2.2-3.9) 02/16/19 16:04 Albumin/Globulin Ratio 1.4 (1.0-2.1) 02/16/19 16:04 - ECG O2 Sat by Pulse Oximetry: 96 (RA) Pulse Ox Interpretation: Normal Medical Decision Making Medical Decision Makin Patient signed out to me by Dr. Herrera pending labs, CT studies 1704 CXR FINDINGS: LINES AND TUBES: None. LUNG AND PLEURA: The lungs are hyperinflated and there is peribronchial thickening with chronic changes in both lungs. No focal consolidation. No pleural effusion or pneumothorax. HEART AND MEDIASTINUM: The heart is not enlarged. There are aortic atherosclerotic calcifications present. The hilar and mediastinal contours are within normal limits. SKELETAL STRUCTURES: The bony structures are within normal limits for the patient's age. VISUALIZED UPPER ABDOMEN: Normal. OTHER FINDINGS: None. IMPRESSION: No active pulmonary disease. COPD. 0 CT Chest FINDINGS: PULMONARY ARTERIES: Unremarkable. No pulmonary embolism. AORTA: No acute findings. No thoracic aortic aneurysm. Calcific atherosclerotic changes are seen related to the thoracic aorta. LUNGS: Unremarkable. No nodule, mass or pulmonary consolidation. PLEURAL SPACES: Unremarkable. No effusion or pneumothorax. HEART: Mild cardiomegaly. No definite pulmonary vascular congestion. LYMPH NODES: No significant lymphadenopathy. BONES, CHEST WALL: Unremarkable. No fracture or destructive lesion OTHER FINDINGS: Incidental prior cholecystectomy with related extrahepatic biliary dilatation. Granulomata are seen at the dome of the liver or at the right hemidiaphragm. IMPRESSION: 1. No CT evidence to indicate pulmonary embolus. 2. No acute infiltrate, pleural effusion, pneumothorax or significant lymphadenopathy. Normal caliber thoracic aorta though calcified atherosclerosis is associated. 3. No significant lymphadenopathy. 4. Additional lesser findings as discussed above. CT A/P FINDINGS: LOWER THORAX: Limited bilateral dependent atelectasis identified. LIVER: Punctate granulomata are seen the right lobe liver/dome versus at right hemidiaphragm. The liver is otherwise unremarkable appearing diffusely. The prior "Nutmeg" enhancement pattern is currently not identified. No intrahepatic biliary dilatation appreciable. GALLBLADDER AND BILE DUCTS: Prior cholecystectomy reiterated. Stable extrahepatic biliary dilatation evident. PANCREAS: Unremarkable. No gross lesion or ductal dilatation. SPLEEN: Unremarkable. ADRENALS: Unremarkable. No mass. KIDNEYS AND URETERS: Stable bilateral upper midpole renal lucencies are seen which are too small to characterize. No obstructive uropathy bilaterally or definitive mass. VASCULATURE: Nonaneurysmal abdominal aortic calcific atherosclerotic changes are identified. BOWEL: Stomach is collapsed and is not well evaluated. Submucosal fat prominence may reflect chronic gastritis or other inflammatory process. No large or small bowel obstruction identified. In fact, the bowel is predominantly collapsed (both large and small) with only limited dilatation of the ascending colon with oral contrast material and a bit of air. APPENDIX: Normal appendix. PERITONEUM: Unremarkable. No free fluid. No free air. LYMPH NODES: Unremarkable. No enlarged lymph nodes. BLADDER: Unremarkable. REPRODUCTIVE: Unremarkable. BONES: No acute fracture. Advanced degenerative disc disease L5-S1. OTHER FINDINGS: None. IMPRESSION: 1. No definitive acute abdominal or pelvic finding as discussed above. 2. Possible chronic inflammatory process or gastritis affecting stomach. No bowel obstruction, measure edema, ascites or free intra peritoneal gas collection. 3. Normalized enhancement pattern throughout the liver prior hepatic venous congestive pattern not identified currently. Hepatic granulomata are reitera lakes[place]. 4. Prior cholecystectomy reiterated. Stable dilatation of the extrahepatic biliary tree again evident. 5. Nonspecific sub cm lucencies may reflect cyst both kidneys but are too small to characterize once again. Scribe Attestation: Documented by Dianne Campos acting as a scribe for Chanelle Swan MD Provider Scribe Attestation: All medical record entries made by the Scribe were at my direction and personally dictated by me. I have reviewed the chart and agree that the record accurately reflects my personal performance of the history, physical exam, medical decision making, and the department course for this patient. I have also personally directed, reviewed, and agree with the discharge instructions and disposition. Disposition - Clinical Impression Clinical Impression: Chest pain, Tachycardia, unspecified - POA Present On Arrival: None - Disposition Disposition: Admitted as In-Patient Disposition Time: 20:16 Condition: STABLE
[2019-02-16] MEDS ORDERED: Sodium Chloride 0.9% 100 ML ONE (18:03)
[2019-02-16] MEDS ORDERED: Iodixanol 320 MG/ML 100 ML BOTTLE IV ONE (18:03)
--- NOTE | 2019-02-16 19:12 | CT ---
Date of service: 02/16/2019 PROCEDURE: CT Chest with contrast (Pulmonary Angiogram) HISTORY: sob COMPARISON: Chest radiographs 02/16/2019 4:06 p.m.. TECHNIQUE: Axial computed tomography images were obtained of the chest in the pulmonary arterial phase of enhancement. Coronal and sagittal reformatted images were created and reviewed. Intravenous contrast dose: Visipaque 320, 95 cc Radiation dose: Total exam DLP = 1023.48 mGy-cm. This CT exam was performed using one or more of the following dose reduction techniques: Automated exposure control, adjustment of the mA and/or kV according to patient size, and/or use of iterative reconstruction technique. FINDINGS: PULMONARY ARTERIES: Unremarkable. No pulmonary embolism. AORTA: No acute findings. No thoracic aortic aneurysm. Calcific atherosclerotic changes are seen related to the thoracic aorta. LUNGS: Unremarkable. No nodule, mass or pulmonary consolidation. PLEURAL SPACES: Unremarkable. No effusion or pneumothorax. HEART: Mild cardiomegaly. No definite pulmonary vascular congestion. LYMPH NODES: No significant lymphadenopathy. BONES, CHEST WALL: Unremarkable. No fracture or destructive lesion OTHER FINDINGS: Incidental prior cholecystectomy with related extrahepatic biliary dilatation. Granulomata are seen at the dome of the liver or at the right hemidiaphragm. IMPRESSION: 1. No CT evidence to indicate pulmonary embolus. 2. No acute infiltrate, pleural effusion, pneumothorax or significant lymphadenopathy. Normal caliber thoracic aorta though calcified atherosclerosis is associated. 3. No significant lymphadenopathy. 4. Additional lesser findings as discussed above.
--- NOTE | 2019-02-16 19:22 | CT ---
Date of service: 02/16/2019 PROCEDURE: CT Abdomen and Pelvis with contrast HISTORY: abd pain rlq COMPARISON: None. TECHNIQUE: Following oral and intravenous contrast administration, a CT examination of the abdomen and pelvis was performed from the domes of the diaphragms to the symphysis pubis with reformatted datasets provided not only axial but also sagittal and coronal series. Contrast dose: Visipaque 320, 95 cc Radiation dose: Total exam DLP = 0.0 mGy-cm. This CT exam was performed using one or more of the following dose reduction techniques: Automated exposure control, adjustment of the mA and/or kV according to patient size, and/or use of iterative reconstruction technique. FINDINGS: LOWER THORAX: Limited bilateral dependent atelectasis identified. LIVER: Punctate granulomata are seen the right lobe liver/dome versus at right hemidiaphragm. The liver is otherwise unremarkable appearing diffusely. The prior "Nutmeg" enhancement pattern is currently not identified. No intrahepatic biliary dilatation appreciable. GALLBLADDER AND BILE DUCTS: Prior cholecystectomy reiterated. Stable extrahepatic biliary dilatation evident. PANCREAS: Unremarkable. No gross lesion or ductal dilatation. SPLEEN: Unremarkable. ADRENALS: Unremarkable. No mass. KIDNEYS AND URETERS: Stable bilateral upper midpole renal lucencies are seen which are too small to characterize. No obstructive uropathy bilaterally or definitive mass. VASCULATURE: Nonaneurysmal abdominal aortic calcific atherosclerotic changes are identified. BOWEL: Stomach is collapsed and is not well evaluated. Submucosal fat prominence may reflect chronic gastritis or other inflammatory process. No large or small bowel obstruction identified. In fact, the bowel is predominantly collapsed (both large and small) with only limited dilatation of the ascending colon with oral contrast material and a bit of air. APPENDIX: Normal appendix. PERITONEUM: Unremarkable. No free fluid. No free air. LYMPH NODES: Unremarkable. No enlarged lymph nodes. BLADDER: Unremarkable. REPRODUCTIVE: Unremarkable. BONES: No acute fracture. Advanced degenerative disc disease L5-S1. OTHER FINDINGS: None. IMPRESSION: 1. No definitive acute abdominal or pelvic finding as discussed above. 2. Possible chronic inflammatory process or gastritis affecting stomach. No bowel obstruction, measure edema, ascites or free intra peritoneal gas collection. 3. Normalized enhancement pattern throughout the liver prior hepatic venous congestive pattern not identified currently. Hepatic granulomata are reiterated. 4. Prior cholecystectomy reiterated. Stable dilatation of the extrahepatic biliary tree again evident. 5. Nonspecific sub cm lucencies may reflect cyst both kidneys but are too small to characterize once again.
[2019-02-16] MEDS ORDERED: Sodium Chloride 0.9% 1,000 ML IV STA (19:48)
[2019-02-16 20:24] VITALS: RESP 18
[2019-02-16] MEDS ORDERED: Albuterol 0.083% Inhal Sol (2.5 mg/3 mL) UD IH PRN (21:57)
--- NOTE | 2019-02-16 22:58 | CARD ---
APPROVED REPORT Date of service: 02/16/2019 EKG Measurement Heart [id number] CO [id number] <Conclusion> Sinus tachycardia Inferior-posterior infarct, age undetermined Abnormal ECG
[2019-02-17 05:49] LABS: HEMOGLOBIN 11.7 g/dL (12.0-16.0); MEAN CELL VOLUME 81.1 fl (81.0-99.0); MEAN CORPUSCULAR HEMOGLOBIN 27.3 pg (27.0-31.0); MEAN CORPUSCULAR HGB CONC 33.7 g/dL (33.0-37.0); RBC 4.29 Mil/uL (3.80-5.20); RED CELL DISTRIBUTION WIDTH 13.9 % (11.5-14.5); WHITE BLOOD COUNT 9.5 K/uL (4.8-10.8)
[2019-02-17 06:15] LABS: ALB/GLOB RATIO 1.3 (1.0-2.1); ALBUMIN 3.9 g/dL (3.5-5.0); ALT/SGPT 58 U/L (9-52); AST/SGOT 43 U/L (14-36); BLOOD UREA NITROGEN 9 mg/dl (7-17); CALCIUM 9.8 mg/dL (8.4-10.2); GFR NON-AFRICAN AMERICAN > 60
[2019-02-17] MEDS ORDERED: Patient's Own Med (Multivitamin/Iron/Folic Acid [Centrum Complete Multivit Tab] 1 TAB) PO SCH (09:00)
[2019-02-17] MEDS: Multivitamin With Minerals Tab PO SCH (09:43)
[2019-02-17] MEDS ORDERED: Promethazine DM 6.25 mg-15 mg/5 ml Syrup PO PRN (12:04)
--- NOTE | 2019-02-17 12:46 | HP ---
HISTORY OF PRESENT ILLNESS: Ellen Reyes presents for chest pain, tachycardia, shortness of breath, cough. No fevers, vomiting, or diarrhea. At present time, denies shortness of breath, chest tightness, or chest pain. All imaging has been reviewed. The patient does have a history of asthma and COPD. Echo has been completed and PE study was normal. No pleural effusion or infiltrates are noted. Cardiac consult is pending. Echo is completed. REVIEW OF SYSTEMS: Chest tightness, shortness of breath, cough, congestion of her lungs. PHYSICAL EXAMINATION: CONSTITUTIONAL: Awake, alert, and oriented. HEENT: Normal. CARDIAC: S1 and S2, regular rate and rhythm. No murmurs, rubs, or gallops. LUNGS: Clear in all pizarro bilaterally. Congestion in the bases, clear with deep respiration. ABDOMEN: Soft, nontender. Bowel sounds x4. EXTREMITIES: Distal pulses and motor sensation is intact. Cap refill is brisk. DIAGNOSIS AND PLAN: Upper respiratory tract infections, bronchitis appears to be the source of the chest congestion and cough. Phenergan and Mucinex. As the patient did have chest pain with significant past medical history, we will consult Cardiology. trops x3 and an echo was ordered. Case appears to be less cardiac in nature, however. Deep venous thrombosis prophylaxis, sequential compression devices, A-hose. We will discharge the patient once cleared by Cardiology for outpatient followup. BEVERLEY Brown SO
[2019-02-17] MEDS: guaiFENesin 600 mg ER Tab PO SCH ×2 (15:56→20:59)
--- NOTE | 2019-02-17 15:59 | CARD ---
APPROVED REPORT Date of service: 02/17/2019 EXAM: Two-dimensional and M-mode echocardiogram with Doppler and color Doppler. Other Information Quality : AverageRhythm : NSR INDICATION Chest Pain 2D DIMENSIONS IVSd0.92 (0.7-1.1cm)LVDd3.80 (3.9-5.9cm) PWd0.89 (0.7-1.1cm)IVSs1.02 (0.8-1.2cm) LVDs2.78 (2.5-4.0cm)FS (%) 26.8 % PWs1.07 (0.8-1.2cm) M-Mode DIMENSIONS Left Atrium (MM)4.00 (2.5-4.0cm)Aortic Root3.41 (2.2-3.7cm) Aortic Cusp Exc.2.15 (1.5-2.0cm) Aortic Valve AoV Peak Jchataya541.7cm/sAoV VTI22.7cmAO Peak GR.6mmHg LVOT Peak Hufongej87.5cm/sLVOT VTI18.51cmAO Mean GR.3mmHg Mitral Valve MV E Yqizcapc99.3cm/sMV DECEL [id number] A Dhihhmfc74.9cm/s MV CSG92gvT/A ratio0.7MVA (PHT)2.93cm2 TDI Lateral E' Peak V10.76cm/sMedial E' Peak V8.47cm/sE/Lateral E'5.8 E/Medial E'7.4 Tricuspid Valve TR Peak Rlhcrsnz936vd/sRAP BKATTPCZ33zqQbFT Peak Gr.16mmHg [id number] LEFT VENTRICLE The left ventricle is normal size. There is normal left ventricular wall thickness. The left ventricular systolic function is normal. The estimated ejection fraction is 55-60% No regional wall motion abnormalities noted.. Transmitral Doppler flow pattern is Grade I-abnormal relaxation pattern. No left ventricle thrombus noted on this study. There is no ventricular septal defect visualized. There is no left ventricular aneurysm. There is no mass noted in the left ventricle. RIGHT VENTRICLE The right ventricle is normal size. There is normal right ventricular wall thickness. The right ventricular systolic function is normal. ATRIA The left atrium is borderline dilated. The right atrium size is normal. The interatrial septum is intact with no evidence for an atrial septal defect. AORTIC VALVE The aortic valve is normal in structure. No aortic regurgitation is present. There is no aortic valvular stenosis. There is no aortic valvular vegetation. MITRAL VALVE The mitral valve is normal in structure. There is no evidence of mitral valve prolapse. There is no mitral valve stenosis. There is no mitral valve regurgitation noted. TRICUSPID VALVE The tricuspid valve is normal in structure. There is mild tricuspid valve regurgitation noted. RVSP is calculated at 20 mm Hg. There is no tricuspid valve prolapse or vegetation. There is no tricuspid valve stenosis. PULMONIC VALVE The pulmonary valve is normal in structure. There is no pulmonic valvular regurgitation. There is no pulmonic valvular stenosis. GREAT VESSELS The aortic root is normal in size. The ascending aorta is normal in size. The pulmonary artery is normal. The IVC is normal in size and collapses >50% with inspiration. PERICARDIAL EFFUSION There is no pericardial effusion. There is no pleural effusion. <Conclusion> The estimated ejection fraction is 55-60% Transmitral Doppler flow pattern is Grade I-abnormal relaxation pattern. The left atrium is borderline dilated. There is mild tricuspid valve regurgitation noted. RVSP is calculated at 20 mm Hg.
[2019-02-17] MEDS ORDERED: Azithromycin 500 MG in Sodium Chloride 0.9% 250 ML IVPB STA (16:13)
[2019-02-17] MEDS ORDERED: Albuterol-Ipratrop 3 mg / 0.5 (3 ml) UD INH STA (16:15)
--- NOTE | 2019-02-17 17:08 | CP.PCM.CON ---
History of Present Illness - History of Present Illness History of Present Illness: ASKED TO SEE PT BY DR DECKER [employer]. PT WITH LEFT SIDED CP WITH COUGH. IT IS REPRODUCIBLE ON EXAM. NOT INCREASED BY ANYTHING OTHER THAN COUGH. PT COUGHING AND SOB X 1 WEEK. PAIN DOES NOT RADIATE Past Patient History - Infectious Disease Hx of Infectious Diseases: None - Tetanus Immunizations Tetanus Immunization: Unknown - Past Medical History & Family History Past Medical History?: Yes - Past Social History Smoking Status: Never Smoked - CARDIAC Hx Cardiac Disorders: Yes Hx Hypercholesterolemia: Yes Hx Hypertension: Yes - PULMONARY Hx Respiratory Disorders: Yes Hx Asthma: Yes - NEUROLOGICAL Hx Neurological Disorder: Yes Hx Migraine: Yes Hx Transient Ischemic Attacks (TIA): Yes - HEENT Hx HEENT Problems: Yes Hx Cataracts: Yes - RENAL Hx Chronic Kidney Disease: No - ENDOCRINE/METABOLIC Hx Endocrine Disorders: No - HEMATOLOGICAL/ONCOLOGICAL Hx Blood Disorders: No Hx Human Immunodeficiency Virus (HIV): No - INTEGUMENTARY Hx Dermatological Problems: No - MUSCULOSKELETAL/RHEUMATOLOGICAL Hx Musculoskeletal Disorders: No Hx Falls: No - GASTROINTESTINAL Hx Gastrointestinal Disorders: Yes Hx Gastritis: Yes - GENITOURINARY/GYNECOLOGICAL Hx Genitourinary Disorders: No - PSYCHIATRIC Hx Psychophysiologic Disorder: No Hx Substance Use: No - SURGICAL HISTORY Hx Surgeries: Yes Hx Cholecystectomy: Yes - ANESTHESIA Hx Anesthesia: Yes Hx Anesthesia Reactions: No Hx Malignant Hyperthermia: No Meds Allergies/Adverse Reactions: Allergies Allergy/AdvReac Type Severity Reaction Status Date / Time No Known Allergies Allergy Verified 02/16/19 13:26 - Medications Medications: Current Medications Albuterol Sulfate (Albuterol 0.083% Inhal Kelly (2.5 Mg/3 Ml) Ud) 2.5 mg IH RQ4 PRN PRN Reason: Shortness of Breath Amlodipine Besylate (Norvasc) 10 mg PO DAILY [facility] Last Admin: 02/17/19 09:42 Dose: 10 mg Aspirin (Ecotrin) 81 mg PO DAILY [facility] Last Admin: 02/17/19 09:42 Dose: 81 mg Atorvastatin Calcium (Lipitor) 20 mg PO DAILY [facility] Last Admin: 02/17/19 09:42 Dose: 20 mg Diazepam (Valium) 5 mg PO DAILY PRN PRN Reason: Muscle spasm Guaifenesin (Mucinex La) 600 mg PO Q12 [facility] Last Admin: 02/17/19 15:56 Dose: 600 mg Azithromycin 500 mg/ Sodium (Chloride) 250 mls @ 250 mls/hr IVPB STAT STA; Protocol Stop: 02/17/19 17:12 Losartan Potassium (Cozaar) 100 mg PO DAILY [facility] Last Admin: 02/17/19 09:41 Dose: 100 mg Montelukast Sodium (Singulair) 10 mg PO HS [facility] Last Admin: 02/16/19 23:11 Dose: 10 mg Multivitamins/Minerals (Therapeutic-M Tab) 1 tab PO DAILY [facility] Last Admin: 02/17/19 09:43 Dose: 1 tab Promethazine HCl/Dextromethorphan (Phenergan Dm Syrup) 5 ml PO Q6 PRN PRN Reason: Cough Last Admin: 02/17/19 15:56 Dose: 5 ml Results - Vital Signs Recent Vital Signs: Last Vital Signs Temp 98.1 F 02/17/19 16:08 Pulse 78 02/17/19 16:08 Resp 18 02/17/19 16:08 BP 112/69 02/17/19 16:08 Pulse Ox 95 02/17/19 16:08 - Labs Result Diagrams: 02/17/19 05:00 02/17/19 05:00 Labs: Laboratory Results - last 24 hr 02/16/19 02/17/19 02/17/19 17:40 05:00 05:00 WBC 9.5 RBC 4.29 Hgb 11.7 L Hct 34.8 MCV 81.1 MCH 27.3 MCHC 33.7 RDW 13.9 Plt Count 299 Sodium 142 Potassium 4.1 Chloride 109 H Carbon Dioxide 25 Anion Gap 12 BUN 9 Creatinine 0.7 Est GFR ( Amer) > 60 Est GFR (Non-Af Amer) > 60 Random Glucose 100 Calcium 9.8 Total Bilirubin 0.7 AST 43 H ALT 58 H Alkaline Phosphatase 76 Troponin I < 0.0120 < 0.0120 Total Protein 6.8 Albumin 3.9 Globulin 2.9 Albumin/Globulin Ratio 1.3 02/17/19 14:45 WBC RBC Hgb Hct MCV MCH MCHC RDW Plt Count Sodium Potassium Chloride Carbon Dioxide Anion Gap BUN Creatinine Est GFR ( Amer) Est GFR (Non-Af Amer) Random Glucose Calcium Total Bilirubin AST ALT Alkaline Phosphatase Troponin I < 0.0120 Total Protein Albumin Globulin Albumin/Globulin Ratio Assessment & Plan (1) Cough Status: Acute (2) Wheeze Status: Acute (3) Chest pain Status: Acute - Assessment and Plan (Free Text) Plan: PTS TROP ARE NML PAIN IS REPRODUCIBLE AND NOT DUE TO CAD. WOULD TREAT URTI SHE IS WHEEZING AND HAS RHONCHI DIFFUSELY. FROM CARDIAC STANDPOINT PT IS STABLE. WILL SIGN OFF PLEASE RECONSULT IF NEEDED. 65 MIN TOTAL CARE TIME.
[2019-02-17] MEDS ORDERED: Albuterol-Ipratrop 3 mg / 0.5 (3 ml) UD INH PRN (20:33)
[2019-02-18 06:03] LABS: BASO # 0.1 K/uL (0.0-0.2); BASO % 0.8 % (0.0-2.0); EOS # 0.6 K/uL (0.0-0.7); LYMPH % 36.8 % (20.0-40.0); MEAN CELL VOLUME 81.4 fl (81.0-99.0); MEAN CORPUSCULAR HEMOGLOBIN 27.1 pg (27.0-31.0); MEAN CORPUSCULAR HGB CONC 33.3 g/dL (33.0-37.0); MEAN PLATELET VOLUME 8.4 fl (7.2-11.7); MONO # 0.7 K/uL (0.0-0.8); MONO % 6.8 % (0.0-10.0); NEUT # 5.3 K/uL (1.8-7.0); NEUT % 49.6 % (50.0-75.0); RBC 4.45 Mil/uL (3.80-5.20); RED CELL DISTRIBUTION WIDTH 13.8 % (11.5-14.5); WHITE BLOOD COUNT 10.8 K/uL (4.8-10.8)
[2019-02-18 06:22] LABS: BLOOD UREA NITROGEN 17 mg/dl (7-17); CALCIUM 9.7 mg/dL (8.4-10.2); GFR NON-AFRICAN AMERICAN > 60
[2019-02-18 08:04] VITALS: BP 104/62; PULSE 73; TEMP 98.2
[2019-02-18] MEDS ORDERED: Azithromycin 500 MG in Sodium Chloride 0.9% 250 ML IVPB SCH (09:00)
--- NOTE | 2019-02-18 09:06 | CP.PCM.DIS ---
Provider - Provider Date of Admission: 02/16/19 20:16 Attending physician: Emmanuel Giron MD Consults: 02/16/19 20:17 Cardiology Consult Stat Comment: Consulting Provider: Johnson Jaimes Consulting Physician: Johnson Jaimes Reason for Consult: Chest pain Time Spent in preparation of Discharge (in minutes): 15 Hospital Course - Lab Results Lab Results: Most Recent Lab Values WBC 10.8 K/uL (4.8-10.8) 02/18/19 04:40 RBC 4.45 Mil/uL (3.80-5.20) 02/18/19 04:40 Hgb 12.0 g/dL (12.0-16.0) 02/18/19 04:40 Hct 36.2 % (34.0-47.0) 02/18/19 04:40 MCV 81.4 fl (81.0-99.0) 02/18/19 04:40 MCH 27.1 pg (27.0-31.0) 02/18/19 04:40 MCHC 33.3 g/dL (33.0-37.0) 02/18/19 04:40 RDW 13.8 % (11.5-14.5) 02/18/19 04:40 Plt Count 277 K/uL (130-400) 02/18/19 04:40 MPV 8.4 fl (7.2-11.7) 02/18/19 04:40 Neut % (Auto) 49.6 % (50.0-75.0) L 02/18/19 04:40 Lymph % (Auto) 36.8 % (20.0-40.0) 02/18/19 04:40 Walker % (Auto) 6.8 % (0.0-10.0) 02/18/19 04:40 Eos % (Auto) 6.0 % (0.0-4.0) H 02/18/19 04:40 Baso % (Auto) 0.8 % (0.0-2.0) 02/18/19 04:40 Neut # (Auto) 5.3 K/uL (1.8-7.0) 02/18/19 04:40 Lymph # (Auto) 4.0 K/uL (1.0-4.3) 02/18/19 04:40 Walker # (Auto) 0.7 K/uL (0.0-0.8) 02/18/19 04:40 Eos # (Auto) 0.6 K/uL (0.0-0.7) 02/18/19 04:40 Baso # (Auto) 0.1 K/uL (0.0-0.2) 02/18/19 04:40 Sodium 140 mmol/l (132-148) 02/18/19 04:40 Potassium 3.6 MMOL/L (3.6-5.0) 02/18/19 04:40 Chloride 109 mmol/L (98-107) H 02/18/19 04:40 Carbon Dioxide 21 mmol/L (22-30) L 02/18/19 04:40 Anion Gap 14 (10-20) 02/18/19 04:40 BUN 17 mg/dl (7-17) 02/18/19 04:40 Creatinine 0.8 mg/dl (0.7-1.2) 02/18/19 04:40 Est GFR ( Amer) > 60 02/18/19 04:40 Est GFR (Non-Af Amer) > 60 02/18/19 04:40 Random Glucose 107 mg/dL (65-105) H 02/18/19 04:40 Calcium 9.7 mg/dL (8.4-10.2) 02/18/19 04:40 Total Bilirubin 0.7 mg/dl (0.2-1.3) 02/17/19 05:00 AST 43 U/L (14-36) H 02/17/19 05:00 ALT 58 U/L (9-52) H 02/17/19 05:00 Alkaline Phosphatase 76 U/L (38-126) 02/17/19 05:00 Troponin I < 0.0120 ng/mL (0.00-0.120) 02/17/19 14:45 Total Protein 6.8 G/DL (6.3-8.2) 02/17/19 05:00 Albumin 3.9 g/dL (3.5-5.0) 02/17/19 05:00 Globulin 2.9 gm/dL (2.2-3.9) 02/17/19 05:00 Albumin/Globulin Ratio 1.3 (1.0-2.1) 02/17/19 05:00 - Hospital Course Hospital Course: cardio,echo, trops pt given iv anbx and steroids with relief Discharge Exam - Head Exam Head Exam: ATRAUMATIC, NORMAL INSPECTION, NORMOCEPHALIC - Eye Exam Eye Exam: EOMI, Normal appearance, PERRL Pupil Exam: NORMAL ACCOMODATION, PERRL - Respiratory Exam Respiratory Exam: Clear to PA & Lateral, NORMAL BREATHING PATTERN, UNREMARKABLE - Cardiovascular Exam Cardiovascular Exam: REGULAR RHYTHM, RRR, +S1, +S2 - GI/Abdominal Exam GI & Abdominal Exam: Normal Bowel Sounds, Soft, Unremarkable - Extremities Exam Extremities exam: full ROM, normal capillary refill, normal inspection, pedal pulses present - Back Exam Back exam: FULL ROM - Neurological Exam Neurological exam: Alert, CN II-XII Intact, Normal Gait, Oriented x3, Reflexes Normal - Psychiatric Exam Psychiatric exam: Normal Affect, Normal Mood - Skin Skin Exam: Dry, Intact, Normal Color, Warm Discharge Plan - Discharge Medications Prescriptions: Azithromycin [Zithromax] 500 mg PO DAILY #1 tablet - Follow Up Plan Condition: STABLE Disposition: HOME/ ROUTINE Instructions: Chest Pain (DC) Additional Instructions: final dx-cp, bronchitis pt doing well, cleared by cardio, less wheezing no distress. no f/c, n/v/d. bw noted.
[2019-02-18] MEDS: guaiFENesin 600 mg ER Tab PO SCH (09:10)
[2019-02-18] MEDS: Multivitamin With Minerals Tab PO SCH (09:10)
--- NOTE | 2019-02-18 14:44 | PQF ---
PROVIDER RESPONSE TEXT: Acute bronchitis REVIEWER QUERY TEXT: Acuity Specificity Bronchitis is documented in the Medical Record. Please specify the acuity of this con dition with terms such as: -- Acute -- Chronic -- Acute and chronic -- Acute on chronic -- Other (please specify in the medical record) The patient's Clinical Indicators include: xx Query created by: Maine Fuller on 02/18/2019 2:30 PM Electronically signed by: Bin Trinidad APN 02/18/2019 2:41 PM
[2019-02-19 16:46] VITALS: O2SAT 96
== END 2019-02-18 12:39 | disposition home or self-care (01) | DRG 140 ==
LOC: H.ER 13:12 → H.ERHOLD 20:16 → H.TEL 21:50
PROVIDERS: ADMIT Family Medicine; ATTEND Family Medicine
DX: J44.0 Chronic obstructive pulmonary disease with (acute) lower respiratory infection (principal); I10 Essential (primary) hypertension; E78.00 Pure hypercholesterolemia, unspecified; Z86.73 Personal history of transient ischemic attack (TIA), and cerebral infarction without residual deficits; K29.70 Gastritis, unspecified, without bleeding; J20.9 Acute bronchitis, unspecified; Z79.82 Long term (current) use of aspirin